=== PATIENT | female | born 1970 | race Caucasian/White ===

== ENCOUNTER 2022-08-28 10:27 | Outpatient (OUT) | payer OTHER, SELFPAY ==
[2022-08-28 13:28] LABS: Thyroid Stimulating Hormone 3.401 uIU/mL (0.358-3.740)
== END 2022-08-28 10:28 | disposition home or self-care (01) ==
LOC: LAB 10:28
PROVIDERS: Visit Provider Physician Assistant
DX: R79.89 Other specified abnormal findings of blood chemistry (principal)
CPT/HCPCS: 36415; 84443

== ENCOUNTER 2023-07-20 | Outpatient (REF) | payer OTHER, SELFPAY | END 2023-07-20 00:01 | disposition home or self-care (01) | LOC: LAB | PROVIDERS: Visit Provider Physician Assistant | DX: Z01.419 Encounter for gynecological examination (general) (routine) without abnormal findings (principal) | CPT/HCPCS: 87624; G0145 ==

== ENCOUNTER 2023-09-07 08:24 | Outpatient (OUT) | payer OTHER, SELFPAY ==
--- NOTE | 2023-09-07 08:40 | XR_ITS ---
The [address] [address] Patient Name: JB POWELL MRN: [id number] date: 1970 Sex: F Assigned Patient Location: [facility] Current Patient Location: [facility] Accession/Order Number: [id number] Exam Date: 09/07/2023 08:30 Report Date: 09/07/2023 09:14 At the request of: DEQUAN MORALES Procedure: XR DEXA axial skeleton EXAMINATION: XR DEXA axial skeleton, 09/07/2023 8:30 AM EDT HISTORY: Postmenopausal State Z78.0 COMPARISON: 2019. TECHNIQUE: Dual-energy X-ray absorptiometry (DEXA) bone density study performed for the axial skeleton. FINDINGS: Bone mineral density AP spine L1-L4 measures 1.067 g/sq cm. T score -0.9. Normal. Lowest bone mineral density of the left femoral neck measuring 0.794 g/sq cm. T score -1.8. Osteopenia XR/XR DEXA axial skeleton IMPRESSION: Osteopenia. Moderate fracture risk Pharmacologic treatment recommendations * No uniform recommendation applies to all patients. Management plans must be individualized. * Consider initiating pharmacologic treatment in postmenopausal women and men >= 50 years of age who have the following: Primary fracture prevention: * T-score <= - 2.5 at the femoral neck, total hip, lumbar spine, 33% radius (some uncertainty with existing data) by DXA. * Low bone mass (osteopenia: T-score between - 1.0 and - 2.5) at the femoral neck or total hip by DXA with a 10-year hip fracture risk >= 3% or a 10-year major osteoporosis-related fracture risk >= 20% (i.e., clinical vertebral, hip, forearm, or proximal humerus) based on the [place]-adapted FRAXregistered model. Secondary fracture prevention: * Fracture of the hip or vertebra regardless of BMD [4, 5]. * Fracture of proximal humerus, pelvis, or distal forearm in persons with low bone mass (osteopenia: T-score between - 1.0 and - 2.5). The decision to treat should be individualized in persons with a fracture of the proximal humerus, pelvis, or distal forearm who do not have osteopenia or low BMD [12, 13]. Liza Badillo MSan SL, Briseyda KL, Ulysses EM, Daiana KG, Tejada AJ, Ranjeet ES. The clinician's guide to prevention and treatment of osteoporosis. Osteoporos Int. 2021;33(10):0783-8218. doi: 10.1007/s97193-071-39808-y. Epub 2021Jun 26. Erratum in: Osteoporos Int. 2021Sep 25;: PMID: [id number]; PMCID: [id number]. Electronically authenticated by: SERA MARKS Date: 09/07/2023 09:14
[2023-09-07 08:49] LABS: Basophils Percent Auto 0.9 % (0.2-2.0); Eosinophils Absolute Auto 0.1 10^3/uL (0.0-0.7); Eosinophils Percent Auto 2.6 % (0.9-7.0); Hematocrit 41.9 % (36.0-48.0); Hemoglobin 14.3 g/dL (12.0-16.0); Immature Granulocytes Abs Auto 0.01 10^3/uL (0.00-0.03); Immature Granulocytes Pct Auto 0.2 % (0.0-0.5); Lymphocytes Absolute Auto 1.7 10^3/uL (1.2-3.8); Lymphocytes Percent Auto 37.8 % (20.5-60.0); Mean Corpuscular HGB Conc 34.1 g/dL (29.9-35.2); Mean Corpuscular Hemoglobin 31.6 pg (26.7-34.0); Mean Corpuscular Volume 92.7 fL (81.0-99.0); Mean Platelet Volume 8.7 fL (9.5-13.5); Monocytes Absolute Auto 0.5 10^3/uL (0.3-0.8); Monocytes Percent Auto 9.9 % (1.7-12.0); Neutrophils Absolute Auto 2.2 10^3/uL (1.4-6.5); Neutrophils Percent Auto 48.6 % (43.0-75.0); Platelet Count 209 10^3/uL (150-450); Red Blood Count 4.52 10^6/uL (4.20-5.40); Red Cell Distribution Width 12.6 % (11.0-15.0); White Blood Count 4.6 10^3/uL (4.0-11.0)
[2023-09-07 09:11] LABS: Alanine Aminotransferase 37 U/L (14-59); Albumin Globulin Ratio 1.1; Albumin Level 3.8 g/dL (3.4-5.0); Alkaline Phosphatase 55 U/L (46-116); Aspartate Amino Transferase 26 U/L (15-37); BUN Creatinine Ratio 17.5; Bilirubin Total 0.7 mg/dL (0.2-1.0); Calcium 9.8 mg/dL (8.5-10.1); Carbon Dioxide 29.5 mmol/L (21.0-32.0); Chloride 105 mmol/L (98-107); Cholesterol 196 mg/dL (<=200); Estimated GFR (African America >60 (>=60); Estimated GFR (Non-African Ame 56 (>=60); Globulin 3.4 g/dL; Glucose 87 mg/dL (74-106); HDL Cholesterol 65 mg/dL (40-60); Potassium 4.5 mmol/L (3.5-5.1); Sodium 141 mmol/L (136-145); Thyroid Stimulating Hormone 5.201 uIU/mL (0.358-3.740); Total Protein 7.2 g/dL (6.4-8.2); Triglycerides 80 mg/dL (<=150)
[2023-09-07 10:02] LABS: Estimated Average Glucose 97 mg/dL
== END 2023-09-07 08:25 | disposition home or self-care (01) ==
LOC: RAD 08:25
PROVIDERS: Visit Provider Obstetrics & Gynecology
DX: Z00.00 Encounter for general adult medical examination without abnormal findings (principal); Z78.0 Asymptomatic menopausal state; M85.80 Other specified disorders of bone density and structure, unspecified site
CPT/HCPCS: 36415; 77080; 80053; 80061; 83036; 84443; 85025

== ENCOUNTER 2024-12-26 19:26 | Outpatient (REF) | payer OTHER, SELFPAY ==
--- OUTSIDE RECORDS SUMMARY | 2024-12-26 11:00 | XMS_ITS | Encounter Summary ---
Author Organization [facility] Address [address] [facility] [place] [address] Care Team Providers Care Finishing Department Supervisor Name Role Phone Lala Brown Unavailable Reason for Visit * ReasonCommentsWell Women Visit Encounter Details DateTypeDepartmentCare Team (Latest Contact Info)Himpqbloqaz68/28/2025 11:00 AM EDTProcedure Visit [facility] [address] [place] [address] Lala Brown PA [address] [facility] [place] [address] Hormone disorder (Primary Dx); Well woman exam with routine gynecological exam; Breast cancer screening by mammogram; Abnormal thyroid stimulating hormone (TSH) level; Wellness examination Social History Tobacco UseTypesPacks/DayYears UsedDateSmoking Tobacco: NeverSmokeless Tobacco: NeverCommentsUnknownSex and Gender InformationValueDate RecordedSex Assigned at BirthNot on fileLegal ZavQadzhg54/15/2023 10:08 PM EDTGender IdentityNot on fileSexual OrientationNot on filedocumented as of this encounter Last Filed Vital Signs Vital SignReadingTime TakenCommentsBlood Qgcbbzbj389/7012/26/2024 11:34 AM EDT Pulse--Temperature--Respiratory Rate--Oxygen Saturation--Inhaled Oxygen Concentration--Eoyupz97.4 kg (150 lb 12.8 oz)12/26/2024 11:34 AM [...] nursing note reviewed. Exam conducted with a bistro server present. Vitals: Estimated body mass index is [...] them. Patient can also view results via [employer]. I reinforced importance of condom use for [...] Plan of Treatment DateTypeDepartmentCare Team (Latest Contact Info)Oqsgaarcczz38/12/2025 8:30 AM ESTOffice Visit [facility] [address] [facility] [place] [phone] Lala Brown PA [address] [facility] [place] [address] 08/28/2025 9:30 AM EDTOffice Visit [facility] [address] [place] [address] Pearl Little MD [address] [place] [address] NameTypePriorityAssociated DiagnosesOrder ScheduleBilateral screening mammogram ImagingRoutine Breast cancer screening by mammogram Expected: 12/26/2024, Expires: 02/25/2026THIN PREP TIS PAP AND HR HPV DNA Pathology and CytologyRoutine Well woman exam with routine gynecological exam Ordered: 12/26/2024TSHLabRoutine Abnormal thyroid stimulating hormone (TSH) level Ordered: 12/26/2024Hemoglobin G5lCeyFtyfiqg Abnormal thyroid stimulating hormone (TSH) level Wellness [...] Expires: 12/26/2025Thyroid peroxidase antibodyLabRoutine Hormone disorder Ordered: 12/26/20241570Q5BzvSxpzumj Hormone disorder Expected: 12/26/2024 (Approximate), Expires: 12/26/2025TESTOSTERONE, [...] Team MemberRelationshipSpecialtyStart DateEnd Date Lala Brown PA [address] [place] [address] [place] [address] PCP - Medical [place] [employer]/documented as of this encounter
--- OUTSIDE RECORDS SUMMARY | 2024-12-26 19:29 | XMS_ITS | CCD ---
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 Name Role Phone Dequan Myers Attending Unavailable ANDREW ., DR BAIRES Admitting Unavailable ANDREW ., DR BAIRES Attending Unavailable MISC, DR VALERA Primary Care Unavailable ANDREW ., DR BAIRES Consulting Unavailable ANDREW ., DR BAIRES Admitting Unavailable ANDREW ., DR BAIRES Attending Unavailable MISC, DR VALERA Primary Care Unavailable ANDREW ., DR BAIRES Consulting Unavailable Dequan Myers DO Primary Care Provider [phone]( [phone] LALA ELAM Referring Unavailable DEQUAN MYERS Primary Care Unavailable Lala Stinson Unavailable PEARL GR Attending Unavailable PEARL GR Attending Unavailable Lala Stinson Unavailable Allergies Allergy ClassificationReported Allergen(s)Allergy TypeDate of OnsetReaction(s) Facility (1 source)ALLERGIES NOT ON FILE; Translations: [ALLERGIES NOT ON FILE]Propensity to adverse reactions (disorder)[facility] Medications Current Medications MedicationDrug Class(es)DatesSig (Normalized)Sig (Original)dimethicone 20 mg/ml topical spray (5 sources)Dimethicone (Restore Cleanser & Moisturizer) 2 % liquid Administer 1 Application into affected eye(s) Daily Jliwfp37 hr metFORMIN hydrochloride 500 mg extended release oral tablet (5 sources)BiguanideStart: 87-03-9537kadz 1 tablet by mouth every twenty-four hours at mealtimemetFORMIN XR (Glucophage-XR) 500 MG 24 hr tablet Indications: Insulin resistance Take 1 tablet (500mg) by mouth in the evening. Take with meals Do not crush, chew, or split. 30 tablet 11 07/20/2023 Active Problems Problem ClassificationProblemDateDocumented DateEpisodic/ChronicImmunizations and screening for infectious disease (1 source)Encounter for screening for human papillomavirus (HPV); Translations: [ENC SCREENING HUMAN PAPILLOMAVIRUS]Onset: 84-77-7836VqnekewsGkxvg and unspecified benign neoplasm (2 sources)Melanocytic nevus of trunk; Translations: [Melanocytic nevi of trunk] 05-27-5695XwxrgbmyYqmaf circulatory disease (2 sources)Spider nevus; Translations: [Nevus, non-neoplastic]11-79-4700Yulxdhhh Other congenital anomalies (2 sources)Birthmark; Translations: [Congenital non-neoplastic nevus]08-28-2024 ChronicOther endocrine disorders (1 source)Disorder of endocrine system; Translations: [Endocrine disorder, unspecified]87-58-3875RjhoiuibAhlfa screening for suspected conditions (not mental disorders or infectious disease) (13 sources)Encounter for screening mammogram for malignant neoplasm of breast; Translations: [Encounter for screening for malignant neoplasm of cervix]Onset: 36-36-7338BauvkmgaCaifn skin disorders (2 sources)Seborrheic keratosis; Translations: [Other seborrheic keratosis] 12-48-5702DsrrqsctPdxvk skin disorders (2 sources)Lentiginosis; Translations: [Other melanin hyperpigmentation] 89-81-9799JyppurkdZpwjd infection (2 sources)Verruca vulgaris; Translations: [Other viral warts]48-96-0147Anzjtsql Results Test NameValueInterpretationReference RangeFacilityBI MAMMO BILATERAL SCREENING TOMOSYNTHESISon 57-61-3061JI MAMMO BILATERAL SCREENING TOMOSYNTHESISInterpreted By: Megan Lynch, STUDY: BI MAMMO BILATERAL SCREENING TOMOSYNTHESIS; 2023 10:24 am ACCESSION NUMBER(S): [id number] ORDERING CLINICIAN: INTERFACE UNSPECIFIELDPROVIDER INDICATION: Screening. Family history of breast cancer. COMPARISON: 08/06/2021, 05/20/2018. FINDINGS: 2D and tomosynthesis images were reviewed at 1 mm slice thickness. Density: There are areas of scattered fibroglandular tissue. No suspicious masses or calcifications are identified. IMPRESSION: No mammographic evidence of malignancy. BI-RADS CATEGORY: BI-RADS Category: 1 Negative. Recommendation: Annual Screening. Recommended Date: 1 Year. Laterality: Bilateral. For any future breast imaging appointments, please call [phone] ([phone]). MACRO: None Signed by: Megan Lynch 08/16/2023 1:25 PM Dictation workstation: [id number] Main Campus Medical CenterCBC AUTO DIFFon 40-28-1613BHPV #0.0 103/ulNormal0.0-0.1The [facility] CenterComment on above:Performed By: #### CBC #### [facility] [address] [address] [address] Kirill MatosBasophils/100 WBC (Bld)0.8 %Normal0.2-2.0[facility] Comment on above:Performed By: #### CBC #### [facility] [address] [address] [address] Kirill Daniel #0.1 103/ulNormal0.0-0.7The [facility] CenterComment on above: Performed By: #### CBC #### [facility] [address] [address] [address] Kirill Waldroposinophils/100 WBC (Bld)2.3 %Normal0.9-7.0[facility] Comment on above:Performed By: #### CBC #### [facility] [address] [address] [address] Kirill Waldroprythrocyte distribution width (RBC) [Ratio]12.3 %Qhlriv47.0-15.0 [facility] HospitalComment on above:Performed By: #### CBC #### [facility] [address] [address] [address] Kirill MatosHematocrit (Bld) [Volume fraction]40.3 %Beebux96.0-48.0[facility] HospitalComment on above:Performed By: #### CBC #### [facility] [address] [address] [address] Kirill MatosHemoglobin (Bld) [Mass/Vol]13.6 g/eZMtsqbb86.0-16.0The [facility] CenterComment on above:Performed By: #### CBC #### [facility] [address] [place] [address] Dr. Kirill Villanueva #0.01 10e3/ulNormal0.00-0.03The [facility] CenterComment on above:Performed By: #### CBC #### [facility] [address] [place] [address] Dr. Kirill Villanueva %0.2 %Normal0.0-0.5The [facility] CenterComment on above: Performed By: #### CBC #### [facility] [address] [place] [address] Dr. Kirill Clarke #1.5 103/ulNormal1.2-3.8The [facility] CenterComment on above:Performed By: #### CBC #### [facility] [address] [place] [address] Dr. Kirill Cannonhocytes/100 WBC (Bld)28.8 %Duvtxe45.5-60.0The [facility] CenterComment on above:Performed By: #### CBC #### [facility] [address] [place] [address] Dr. Kirill Greenfield DIFF REQNONormalThe [facility] CenterComment on above: Performed By: #### CBC #### [facility] [address] [place] [address] Dr. Kirill Sanchez (RBC) [Entitic mass]31.1 wzEfcqvc22.7-34.0The [facility] CenterComment on above:Performed By: #### CBC #### [facility] [address] [place] [address] Dr. Kirill Sanchez (RBC) [Mass/Vol]33.7 g/dBGdiowc06.9-35.2The [facility] CenterComment on above:Performed By: #### CBC #### [facility] [address] [place] [address] Dr. Kirill Sanchez (RBC) [Entitic vol]92.2 fEBzwdes27.0-99.0The [facility] CenterComment on above:Performed By: #### CBC #### [facility] [address] [place] [address] Dr. Kirill Cruz #0.4 103/ulNormal0.3-0.8The [facility] CenterComment on above:Performed By: #### CBC #### [facility] [address] [place] [address] Dr. Kirill Verasocytes/100 WBC (Bld)6.8 %Normal1.7-12.0The [facility] Comment on above:Performed By: #### CBC #### [facility] [address] [place] [address] Dr. Kirill Russo #3.2 103/ulNormal1.4-6.5The [facility] CenterComment on above:Performed By: #### CBC #### [facility] [address] [place] [address] Dr. Kirill Alvaradoutrophils/100 WBC (Bld)61.1 %Zjvthp86.0-75.0The [facility] CenterComment on above:Performed By: #### CBC #### [facility] [address] [place] [address] Dr. Kirill Hough mean volume (Bld) [Entitic vol]8.7 fLCritically low 9.5-13.5The [facility] CenterComment on above:Performed By: #### CBC #### [facility] [address] [place] [address] Dr. Kirill HeinT225 103/uqKcejdb367-107Ijr [facility] CenterComment on above: Performed By: #### CBC #### [facility] [address] [place] [address] Dr. Kirill FreitasC4.37 106/ulNormal4.20-5.40The [facility] CenterComment on above:Performed By: #### CBC #### [facility] [address] [place] [address] Dr. Kirill ZacariasBC5.2 103/ulNormal4.0-11.0The [facility] CenterComment on above: Performed By: #### CBC #### [facility] [address] [place] [address] Dr. Kirill MatosGLYCOHEMOGLOBIN A1Con 86-08-7792PPP RECOMMENDATIONSEE BELOWNoKettering Health TroyComment on above:Result Comment: ADA RECOMMENDED LIMIT 4.0 - 6.0 ADA THERAPEUTIC TARGET < 7.0 ACTION SUGGESTED > 7.0Performed By: #### A1C #### [facility] [address] [place] [address] Dr. Kirill MatosGlucose [Mass/Vol]82 mg/dLNoHarrison Community HospitalComment on above:Performed By: #### A1C #### [facility] [address] [place] [address] Dr. Kirill MatosHbA1c (Bld) [Mass fraction]4.5 %Normal4.5-6.2The [facility] CenterComment on above:Performed By: #### A1C #### [facility] [address] [place] [address] Dr. Kirill MatosLIPID PROFILEon 51-98-5678MFWA-HDL RATIO NORMSEE [facility] HospitalComment on above:Result Comment: 3.3 - 4.4 LOW RISK 4.4 - 7.1 AVERAGE RISK 7.1 - 11.0 MODERATE RISK >11.0 HIGH RISKPerformed By: #### BMP, TSH, LIPID #### [facility] [address] [place] [address] Dr. Kirill MatosCholesterol [Mass/Vol]183 mg/dLNormal<=200The [facility] Comment on above:Performed By: #### BMP, TSH, LIPID #### [facility] [address] [place] [address] Dr. Kirill Pageesterol in HDL [Mass/Vol]54 mg/eIIanksw94-50Ctm [facility] CenterComment on above:Performed By: #### BMP, TSH, LIPID #### [facility] [address] [place] [address] Dr. Kirill Pageesterol in LDL [Mass/Vol]111.2 mg/dLDayton Children's HospitalComment on above:Performed By: #### BMP, TSH, LIPID #### [facility] [address] [address] [address] Kirill Walton.total/Cholesterol in HDL [Mass ratio]3.4 {ratio} NormalThe [facility] Medical CenterComment on above:Performed By: #### BMP, TSH, LIPID #### [facility] [address] [address] [address] Kirill Adan NORMAL> or = 60 mg/dl - LOW CARDIOVASCULAR RISK <40 mg/dl - HIGH CARDIOVASCULAR RISKDayton Children's HospitalComment on above:Performed By: #### BMP, TSH, LIPID #### [facility] [address] [address] [address] Kirill Espinoza CALC NORMALSEE BELOWDayton Children's HospitalComment on above:Result Comment: <100 mg/dl OPTIMAL 100 - 129 mg/dl NEAR OR ABOVE OPTIMAL 130 - 159 mg/dl BORDERLINE HIGH 160 - 189 mg/dl HIGH >190 mg/dl VERY HIGH Performed By: #### BMP, TSH, LIPID #### [facility] [address] [address] [address] Kirill MatosTriglyceride [Mass/Vol]89 mg/dLNormal<=150[facility] Comment on above:Performed By: #### BMP, TSH, LIPID #### [facility] [address] [place] [address] Dr. Kirill SanchezLDL CALC17.8 mg/dLNoHarrison Community HospitalComment on above: Performed By: #### BMP, TSH, LIPID #### [facility] [address] [address] [address] Kirill MatosPROF CHEM 8 (BAS METB)on 05-23-3726Webii gap [Moles/Vol]9.3 mmol/LNormalFayette County Memorial HospitalComment on above:Performed By: #### BMP, TSH, LIPID #### [facility] [address] [place] [address] Dr. Kirill MatosCalcium [Mass/Vol]10.1 mg/dLNormal8.5-10.1The [facility] Comment on above:Performed By: #### BMP, TSH, LIPID #### [facility] [address] [address] [address] Kirill MatosChloride [Moles/Vol]104 mmol/BRmbbpm60-468Thz [facility] Comment on above:Performed By: #### BMP, TSH, LIPID #### [facility] [address] [address] [address] Kirill MatosCO2 [Moles/Vol]29.0 mmol/MVtxrts15.0-32.0The [facility] Comment on above:Performed By: #### BMP, TSH, LIPID #### [facility] [address] [place] [address] Dr. Kirill MatosCreatinine [Mass/Vol]0.89 mg/dLNormal0.55-1.02The [facility] CenterComment on above:Performed By: #### BMP, TSH, LIPID #### [facility] [address] [place] [address] Dr. Roy ChangEGFR-AF GHANAIAN>60Normal>=60The [facility] CenterComment on above:Performed By: #### BMP, TSH, LIPID #### [facility] [address] [place] [address] Dr. Kirill WaldropGFR-NON AF GHANAIAN>60Normal>=60The [facility] CenterComment on above:Performed By: #### BMP, TSH, LIPID #### [facility] [address] [address] [address] Kirill MatosGlucose [Mass/Vol]83 mg/kLUdyapa54-144EhnFayette County Memorial Hospital Comment on above:Performed By: #### BMP, TSH, LIPID #### [facility] [address] [address] [address] Kirill MatosPotassium [Moles/Vol]4.3 mmol/LNormal3.5-5.1The [facility] Comment on above:Performed By: #### BMP, TSH, LIPID #### [facility] [address] [address] [address] Kirill Harkinsdium [Moles/Vol]138 mmol/MGhztdr930-036Azy [facility] Comment on above:Performed By: #### BMP, TSH, LIPID #### [facility] [address] [place] [address] Dr. Kirill Goetz nitrogen [Mass/Vol]17.0 mg/dLNormal7.0-18.0The [facility] CenterComment on above:Performed By: #### BMP, TSH, LIPID #### [facility] [address] [place] [address] Dr. Kirill Goetz nitrogen/Creatinine [Mass ratio]19.1 mg/mgNoHarrison Community HospitalComment on above:Performed By: #### BMP, TSH, LIPID #### [facility] [address] [place] [address] Dr. Kirill Dumont 78-14-2782VFN9.094 uIU/mLCritically high0.358-3.740The [facility] CenterComment on above:Performed By: #### BMP, TSH, LIPID #### [facility] [address] [place] [address] Dr. Kirill Hester ACOG PANEL 2: 30 to 65on 05-08-2022..NormalThe [facility] Medical CenterComment on above:Result Comment: Performed at: WBPerformed By: #### [id number] #### [facility] [address] [place] [address] Dr. Kirill Carver Gdln ACOG Gawnrln90-89ZolttbYuoHarrison Community HospitalComment on above:Performed By: #### [id number] #### [facility] [address] [place] [address] Dr. Kirill MatosDIAGNOSIS:CommentDayton Children's HospitalComment on above: Result Comment: NEGATIVE FOR INTRAEPITHELIAL LESION OR MALIGNANCY. CELLULAR CHANGES ASSOCIATED WITH ATROPHY ARE PRESENT. THIS SPECIMEN WAS RESCREENED PART OF OUR INTAKE RN PROGRAM. Performed at: WBPerformed By: #### [id number] #### [facility] [address] [place] [address] Dr. Kirill Rodriguez AptimaNegativeNormalNegativeOhioHealth Arthur G.[facility], Cancer [facility] on above:Result Comment: This nucleic acid amplification test detects fourteen high-risk HPV types (16,18,31,33,35,39,45,51,52,56,58,59,66,68) without differentiation. Performed at: =GPerformed By: #### [id number] #### [facility] [address] [place] [address] Dr. Kirill MatosHPMoises Genotype ReflexCommentRegency Hospital Toledo on above:Result Comment: Criteria not met, HPV Genotype not performed. Performed at: WBPerformed By: #### [id number] [address] [address] [address] Kirill MatosMethodology:CommentRegency Hospital Toledo on above: Result Comment: This liquid based ThinPrep(R) pap test was screened with the use of an image guided system. Performed at: WBPerformed By: #### [id number] #### [address] [address] Dr[address] Kirill MatosNote:CommentRegency Hospital Toledo on above:Result Comment: The Pap smear is a screening test designed to aid in the detection of premalignant and malignant conditions of the uterine cervix. It is not a diagnostic procedure and should not be used as the sole means of detecting cervical cancer. Both false-positive and false-negative reports do occur. . Performed at: WBPerformed By: #### [id number] #### [facility] [address] [place] [address] Dr. Kirill MatosPerformed by:CommentRegency Hospital Toledo on above: Result Comment: Carlos Irizarry, Fuel Operator (ASCP) Performed at: WBPerformed By: #### [id number] #### [facility] [address] [place] [address] Dr. Kirill MatosQC reviewed by:[facility] on above:Result Comment: Beatrice Cummings, Fuel Operator (ASCP) Performed at: WBPerformed By: #### [id number] #### [facility] [address] [address] [address] Kirill Esqueda adequacy:CommentDayton Children's HospitalComment on above:Result Comment: Satisfactory for evaluation. Endocervical and/or squamous metaplastic cells (endocervical component) are present. Performed at: WBPerformed By: #### [id number] #### [facility] [address] [address] [address] Kirill MatosDIGITAL MAMM SCREENING W/ TOMOon 89-54-3969ARWNIQI MAMM SCREENING W/ TOMOMRN: [id number] Patient Name: KRYSTAL POWELL STUDY: DIGITAL MAMM SCREENING W/ ROSELYN; 08/06/2021 2:17 pm ACCESSION NUMBER(S): [id number] ORDERING CLINICIAN: DEQUAN MYERS INDICATION: Screening. Remote benign left breast biopsy. COMPARISON: 05/20/2018 and 01/26/2017. FINDINGS: 2D and tomosynthesis images were reviewed at 1 mm slice thickness. There are areas of scattered fibroglandular tissue. No suspicious masses or calcifications are identified. IMPRESSION: No mammographic evidence of malignancy. BI-RADS CATEGORY: Category: 1 - Negative. Recommendation: 1 Year Screening. For any future breast imaging appointments, please call [phone]). Patient letter sent SNORM Electronically signed by: YUDELKA GIPSON MDNorth Shore Health Vital Signs Date TimeVital SignValuePerforming YrlizhkekKkmxiydm21-44-3050 11:34-0400Body mass index (BMI) [Ratio]26.71 kg/m2Lala MOREL Work Phone: [facility] WestBwgrijwjmt64-60-1350 11:34-0400Body fbhoeu26.4 kg Lala MOREL Work Phone: [facility] BeyondSaint Mary's Health CenterNpncxkxcbg95-46-0487 11:34-0400Diastolic blood nfoziluq73 mm[Hg]Lala MOREL Work Phone: noSaint Mary's Health CenterQudaavdzke66-73-0066 11:34-0400Systolic blood tgzoqujm600 mm[Hg]Lala MOREL Work Phone: NOSaint Mary's Health CenterCvrtraellb21-42-1071 10:10040Body cm [facility]06-13-2024 10:040Body mass index (BMI) [Ratio]25.33 kg/m2CmMercy Health St[facility]06-13-2024 10:040Body [address]iknwa29.[address] [facility] Encounters Encounter DateEncounter TypeCare ProviderFacilityStart: 12-26-2024 End: 26-19-3360Jkozxy flowsheetLala MOREL Work Phone: no [facility] OBGYNStart: 12-26-2024 End: 54-93-6782Hcfpdy flowsCollin MOREL Work Phone: noms Blake OBGYNStart: 12-26-2024 End: 22-37-5078Ddwsxrq encounter procedureLala MOREL Work Phone: [facility] Work Phone: Start: 12-26-2024 End: 51-75-6742Tdxemmc encounter statusLala MOREL Work Phone: noms HealthcareStart: 12-26-2024 End: 10-81-2920Kygikadj preventive med est patient 40-64yrsAmy Stephanie MOREL Work Phone: noms Blake OBGYNComment on above:Hormone disorder (Primary Dx); Well woman exam with routine gynecological exam; Breast cancer screening by mammogram; Abnormal thyroid stimulating hormone (TSH) level; Wellness examinationStart: 08-28-2024 End: 28-09-4162Hhgvbz flowsheetEmyelitza Gr MD Work Phone: noms SWS DERMStart: 08-28-2024 End: 82-06-9105Koicho flowsheetPearl Gr MD Work Phone: noms SWS DERMStart: 08-28-2024 End: 86-47-7468sivonencyhDTULA A PETITTINot AvailableStart: 08-28-2024 End: 68-52-3463Tqqvvm outpatient visit 15 minutesEmyelitza Gr MD Work Phone: NO[facility] DERMComment on above:Seborrheic keratosis (Primary Dx); Melanocytic nevus of trunk; Lentigines; Capillary angioma; Birthmark of skin; Common wartStart: 09-27-2023 End: 45-64-5741iuqbcobrcbNERPC A PETITTINot AvailableStart: 2023 End: 59-05-0962Ftjhnujrir hospital visit by physicianChickasaw [facility] Cnrk1008d [facility]– MilwaukeeComment on above:Encounter for screening mammogram for malignant neoplasm of breastStart: 2023 End: 15-40-2727nzaquwizefGWQMercy Health Urbana Hospitaltart: 56-05-0205Nnufddxju for general adult medical examination without abnormal findingsDR DEQUAN ANDREW .[facility] Hospitaltart: 05-21-2022 End: 36-92-4480javvbijtupRW DEQUAN ANDREW .Facility:X2Tixgw: 05-21-2022 End: 94-52-1091Gdfspibht for general adult medical examination without abnormal findingsDR DEQUAN ANDREW .Facility:X3Zpajq: 04-30-2022 End: 88-09-9774yatwyqwprkSA DEQUAN ANDREW .Facility:I7Lxgqu: 32-23-9282ylyyllmzef Dequan Jose FazioFacility:[id number] Procedures DateProcedureProcedure DetailPerforming ClinicianStart: 30-17-0934Oajptrmeehl Pearl Gr MD Work Phone: Start: 21-49-2531Frmwoxwriip observation [Identifier] in Cervix by Cyto stainPearl Gr MD Work Phone: Start: 53-40-3385IbxneuskrpvSdxal Petitti MD Work Phone: Start: 77-18-2050JkgffnayfwyNbx MammoStart: 04-30-2022 Microscopic observation [Identifier] in Cervix by Cyto stainChickasaw Nation Medical Center – [facility] MammoStart: 69-97-7197RnjankfsxpqRyb Mammo Plan of Treatment DateCare ActivityDetailAuthorStart: 49-56-2200Rboaepfxg for malignant neoplasm of colonNOMS HealthcareStart: 00-89-7455Aemqfdyed for malignant neoplasm of colonSumma Health Akron CampusStart: 47-71-8013Olbjtdxgs for malignant neoplasm of cervixNOMS HealthcareStart: 89-57-5605Mgtnilcva for malignant neoplasm of cervixPap SmearNOMS HealthcareStart: 08-28-2025 End: 90-37-0261Cgkyeqi encounter procedureNOMS SWS DERMStart: 04-30-2025 Screening for malignant neoplasm of cervixSumma Health [facility] Start: 01-10-2025 End: 19-31-6230Dgojdop encounter ubkwhmzbm39/12/2025 8:30 AM EST Office Visit KARMEN THOMPSON [address] [place] [id number] Lala Elam PA [address] [place] [address] KARMEN SOLORZANONStart: 12-26-2024 End: 24-90-4118S-peptideC-peptide Lab Routine Hormone disorder Expected: 12/26/2024 (Approximate), Expires: 12/26/2025[facility] HealthcareComment on above: Expected: 12/26/2024 (Approximate), Expires: 12/26/2025Start: 12-26-2024 End: 49-41-7194TLA W Auto Differential panel - BloodCBC auto differential Lab Routine Wellness examination Expected: 12/26/2024 (Approximate), Expires: 12/26/2025[facility] HealthcareComment on above:Expected: 12/26/2024 (Approximate), Expires: 12/26/2025Start: 12-26-2024 End: 10-29-7273Macfuazf freeCortisol, free Lab Routine Hormone disorder Expected: 12/26/2024 (Approximate), Expires: 12/26/2025[facility] HealthcareComment on above:Expected: 12/26/2024 (Approximate), Expires: 12/26/2025Start: 12-26-2024 End: 82-40-2619Goojdul [Mass/volume] in Serum or PlasmaGlucose, random Lab Routine Hormone disorder Expected: 12/26/2024 (Approximate), Expires: 12/26/2025 N[facility] HealthcareComment on above:Expected: 12/26/2024 (Approximate), Expires: 12/26/2025Start: 12-26-2024 End: 35-24-4279Nmlmcot, totalInsulin, total Lab Routine Hormone disorder Expected: 12/26/2024 (Approximate), Expires: 12/26/2025[facility] HealthcareComment on above:Expected: 12/26/2024 (Approximate), Expires: 12/26/2025Start: 12-26-2024 End: 59-54-2492AE Breast - bilateral ScreeningBilateral screening mammogram Imaging Routine Breast cancer screening by mammogram Expected: 12/26/2024, Expires: 02/25/2026[facility] Work Phone: comment on above:Expected: 12/26/2024, Expires: 02/25/2026Start: 12-26-2024 End: 31-20-7186Lhhirkpdi serumSerotonin serum Lab Routine Hormone disorder Expected: 12/26/2024 (Approximate), Expires: 12/26/2025[facility] HealthcareComment on above:Expected: 12/26/2024 (Approximate), Expires: 12/26/2025Start: 12-26-2024 End: 16-57-2684RehbondyzcwpsHulcfuortrtcn Lab Routine Hormone disorder Expected: 12/26/2024 (Approximate), Expires: 12/26/2025[facility] HealthcareComment on above: Expected: 12/26/2024 (Approximate), Expires: 12/26/2025Start: 12-26-2024 End: 90-20-1885Rnydtjzdqphnv AntibodyThyroglobulin Antibody Lab Routine Hormone disorder Expected: 12/26/2024 (Approximate), Expires: 12/26/2025[facility] Comment on above:Expected: 12/26/2024 (Approximate), Expires: 12/26/2025Start: 12-26-2024 End: 69-06-5642Xjmdlxzbsts [Units/volume] in Serum or PlasmaNOSaint Mary's Health Center Comment on above:Ordered: 12/26/2024Expected: 12/26/2024 (Approximate), Expires: 12/26/2025Start: 87-61-9605QVPWM-19 Vaccine ( season)COVID-19 Vaccine ( season)[facility] HealthcareStart: 09-07-3346Relbwovas vaccinationNOVA HealthcareStart: 87-93-5931Snphahbkb for malignant neoplasm of breastMammogramUNIVERSITY OF UTAH [facility] HealthcareStart: 57-26-0328TYCED-19 Vaccine ( season)COVID-19 Vaccine ()[facility] Start: 74-44-6440Kduslqtzw for malignant neoplasm of breastMammogramUniversity Hospitals [facility]: 24-65-4845Msmlbl Vaccines (1 of 2)Zoster Vaccines (1 of 2)[facility]: 71-32-5801RSY Vaccines (1 of 1 - Standard series)MMR Vaccines (1 of 1 - Standard series)[facility]: 62-24-6306YLmX/Tdap/Td Vaccines (1 - Tdap)DTaP/Tdap/Td Vaccines (1 - Tdap)[facility]: 38-49-0912Ybjndkukk for malignant neoplasm of cervixHPV/CotestUniversity Hospitals Conneaut Medical Center: 34-33-4159Jilzjcliy B Vaccines (1 of 3 - 19+ 3-dose series)Hepatitis B Vaccines (1 of 3 - 19+ 3-dose series)[facility]: 1988 Diabetes mellitus screeningDiabetes ScreeningSumma Health [facility] Start: 26-33-7301Wyxhtrecj C screeningHepatitis C ScreeningUniversity Hospitals Conneaut [facility]: 86-37-9782XDhM/Tdap/Td Vaccines (1 - Tdap)DTaP/Tdap/Td Vaccines (1 - Tdap)[facility]: 16-55-4816ILR Vaccines (1 of 1 - Standard series)MMR Vaccines (1 of 1 - Standard series)[facility]Start: 94-20-4408YGH screeningHIV ScreeningUniversity Hospitals Conneaut [facility]: 44-51-9139Szgst panelLipid PanelUniversity Hospitals Conneaut Medical Center: 28-83-3758Qyqnulczf for malignant neoplasm of colonUniversity Hospitals Conne[facility]: 23-06-7623Nkqtsv Adult PhysicalYearly Adult PhysicalSumma Health Akron CampusCholesterol [Mass/volume] in Serum or PlasmaCholesterol, total Lab Routine Wellness examination Ordered: 12/26/2024[facility] HealthcareComment on above:Ordered: 12/26/2024omprehensive metabolic 2000 panel - Serum or PlasmaComprehensive metabolic panel Lab Routine Wellness examination Ordered: 12/26/2024[facility] HealthcareComment on above:Ordered: 12/26/2024 End: 67-91-3409CFT Breast [facility] Area Work Phone: Comment on above:Once for 1 Occurrences starting 2023 until 08/12/20236359BUWY-hcrogslOWAD-najqzzh Lab Routine Hormone disorder Ordered: 12/26/2024[facility] HealthcareComment on above:Ordered: 12/26/2024Estradiol Estradiol Lab Routine Hormone disorder Ordered: 12/26/2024[facility] HealthcareComment on above:Ordered: 12/26/2024EstroneEstrone Lab Routine Hormone disorder Ordered: 12/26/2024[facility] HealthcareComment on above:Ordered: 12/26/2024Ferritin [Mass/volume] in Serum or PlasmaFerritin Lab Routine Hormone disorder Ordered: 12/26/2024[facility] HealthcareComment on above:Ordered: 12/26/2024Hemoglobin A1c/Hemoglobin.total in BloodHemoglobin A1c Lab Routine Abnormal thyroid stimulating hormone (TSH) level Wellness examination Ordered: 12/26/2024[facility] HealthcareComment on above:Ordered: 12/26/2024ProgesteroneProgesterone Lab Routine Hormone disorder Ordered: 12/26/2024[facility] HealthcareComment on above: Ordered: 12/26/2024Sex hormone binding globulinSex hormone binding globulin Lab Routine Hormone disorder Ordered: 12/26/2024[facility] HealthcareComment on above: Ordered: 12/26/2024T3, reverseT3, reverse Lab Routine Hormone disorder Ordered: 12/26/2024[facility] HealthcareComment on above:Ordered: 12/26/2024TESTOSTERONE, FREE TESTOSTERONE, FREE Lab Routine Hormone disorder Ordered: 12/26/2024[facility] HealthcareComment on above:Ordered: 12/26/2024Testosterone, free, total Testosterone, free, total Lab Routine Hormone disorder Ordered: 12/26/2024[facility] HealthcareComment on above:Ordered: 12/26/2024THIN PREP TIS PAP AND HR HPV DNA THIN PREP TIS PAP AND HR HPV DNA Pathology and Cytology Routine Well woman exam with routine gynecological exam Ordered: 12/26/2024[facility] HealthcareComment on above:Ordered: 12/26/2024Thyroid peroxidase antibodyThyroid peroxidase antibody Lab Routine Hormone disorder Ordered: 12/26/2024[facility] HealthcareComment on above: Ordered: 12/26/2024Thyroxine (T4) free [Mass/volume] in Serum or PlasmaT4, free Lab Routine Hormone disorder Ordered: 12/26/2024[facility] HealthcareComment on above: Ordered: 12/26/2024Triiodothyronine (T3) Free [Mass/volume] in Serum or Plasma T3, free Lab Routine Hormone disorder Ordered: 12/26/2024[facility] HealthcareComment on above:Ordered: 12/26/2024Vitamin D 1,25 dihydroxyVitamin D 1,25 dihydroxy Lab Routine Hormone disorder Ordered: 12/26/2024[facility] HealthcareComment on above: Ordered: 12/26/2024 Immunizations Immunization DateImmunizationNotesCare LvranheeWqprjnaa59-41-4564vpsbvcfvb virus vaccine, unspecified formulationPearl Gr MD Work Phone: [facility] Payers DatePayer CategoryPayerPolicy [id number] Health InsuranceMEDICAL MUTUAL [id number] MUTUAL OF [facility] [id number] 2023-Present [address] [place] [id number] [id number] [id number] 2..[id number] 2..[id number] 2..840.1.24760[id number] Social History DateTypeDetailFacilityTobacco smoking status NHISTobacco smoking consumption unknownUnPremier Health [facility] Work Phone: Start: 31-48-4217Zer assigned at birthNot on file [facility] Work Phone: Start: 09-27-2023 End: 61-53-3459Nrvvlg identityNot on fileSumma Health [facility] Campus Work Phone: Start: 08-02-2023 End: 35-43-7421Ccwznbfz to SARS-CoV-2 (event)Not sureSumma Health Akron CampusStart: 00-18-4325Dbykpkk smoking status NHISNever smoked tobaccoNOMS HealthcareStart: 58-60-6899Smhqpid use and exposureSmokeless tobacco non-user [facility] HealthcareStart: 09-27-2023 End: 46-31-1805Aixuzzk of Social functionUNIVERSITY OF UTAH HOSPITAL HealthcareStart: 30-77-2627Wco FemaleSaint Joseph Hospital West History of Present illness Narrative 12-26-2024 Note Date & IdysMspoWojngcco53-59-9725 History of Present illness Narrative* MARIA TERESA Mojica - 12/26/2024 11:00 AM EDT Reason for Appointment: Patient ID: Krystal Powell is a 54 y.o. female who presents for [facility] Visit Patient presents today for Annual [...] nursing note reviewed. Exam conducted with a hostler helper present. Vitals: Estimated body mass index is 26.71 kg/m as calculated from the following: Height as [...] them. Patient can also view results via [employer]. I reinforced importance of condom use for [...] of: MARIA TERESA Mojica documented in this encounterNOMS Healthcare History of Present illness Narrative 08-28-2024 Note Date & HwqgGzqrCfjlpyuh24-94-0234 History of Present illness Narrative* Pearl Gr MD - 08/28/2024 10:00 AM EDT Skin Check Location: Patient requests a full body skin examination Dermatologic history: no history of skin cancer, no history of atypical moles, no family history ofmelanoma Last visit: 09/27/2023 Established patient All pertinent medical history, medications, and allergies were reviewed. General Exam: alert , oriented to person, place, and time , normal affect, well appearing Unaccompanied Scalp, Examined , exam limited by hair Right leg Examined Head, Face Examined Left leg Examined Neck Examined Right foot Examined Chest Examined , limited by bra Left foot Examined Back Examined Buttocks Examined , limited by underwear Abdomen Examined Digits,nails: Examined Right arm Examined Patient is wearing toenail kinyarwanda. Denies any dark streaks under kinyarwanda. Left arm Examined Lymphatics: Not examined Hands Examined Skin Exam 1. SEBORRHEIC KERATOSIS Trunk Stuck on verrucous, quick-brown papules and plaques. Patient was counseled regarding these benign growths. Removal is normally not necessary, but they may be removed if they are symptomatic or for cosmetic reasons. 2. MELANOCYTIC NEVUS OF TRUNK Generalized Scattered benign appearing, regular brown to light brown melanocytic papules and macules with similar morphology Counseled regarding these benign growths. Rarely, a nevus can develop into malignant melanoma, so any changing nevi should be promptly re-evaluated. 3. LENTIGINES Generalized Scattered quick macules in sun-exposed areas. The patient was informed that lentigines are benign pigmented lesions that occur on sun-exposed andsun-damaged skin. No treatment is necessary. Recommended regular use of broad spectrum sunscreen SPF 30 or higher 4. CAPILLARY ANGIOMA Trunk Scattered humphreys-red papule(s). The patient was informed that angiomas are benign growths on the the skin. No treatment is necessary. 5. BIRTHMARK OF SKIN Right Lower Back 6. COMMON WART Right Lower Leg - Anterior Erythematous verrucous papule(s). Patient and/or family member was counseled regarding warts. Treatment options were discussed including cryotherapy, antony antigen injections, and topical Cantharidin. It was explained that it typically requires multiple treatments before the wart(s) completely resolve. The importance of followingup every 3-4 weeks was emphasized. Encouraged OTC wart removers in between appointments to hasten resolution. Next Visit: 1 year, skin check documented in this encounterUN[facility]ERS[facility] Evaluation note Note Date & TypeNoteFacilityEvaluation note* Diagnosis Encounter for screening mammogram for malignant neoplasm of breast documented in this encounter [facility] Work Phone: Evaluation note Note Date & TypeNoteFacilityEvaluation note* Diagnosis Seborrheic keratosis- Primary Melanocytic nevus of trunk Benign neoplasm of skin of trunk, except scrotum Lentigines Capillary angioma Nevus, non-neoplastic Birthmark of skin Congenital vascular hamartomas Common wart Other specified viral warts documented in this encounter [facility] Evaluation note Note Date & TypeNoteFacilityEvaluation note* Diagnosis Hormone disorder- Primary Unspecified endocrine disorder Well woman exam with routine gynecological exam Routine gynecological examination Breast cancer screening by mammogram Abnormal thyroid stimulating hormone (TSH) level Wellness examination documented in this encounter [facility] Summary Purpose Family History No Family History Records FoundNo Family History Records FoundNo Family History Records FoundNo Family History Records Found Advance Directives No Advanced Directives Records FoundNo Advanced Directives Records FoundNo Advanced Directives Records FoundNo Advanced Directives Records Found Additional Source Comments INFORMATION SOURCE (unrecogn ized section and content) DATE CREATED AUTHOR 11/30/2021 [facility] DATE CREATED AUTHOR AUTHOR'S ORGANIZ ATION 05/24/2022 [facility] DATE CREATED AUTHOR AUTHOR'S ORGANIZ ATION 09/19/2023 [facility] DATE CREATED AUTHOR AUTHOR'S ORGANIZ ATION 08/28/2024 [facility] EPIC Reason for Visit (unrecogniz ed section and content) SpecialtyDiagnoses / ProceduresReferred By ContactReferred To ContactRadiology Diagnoses Encounter for screening mammogram for malignant neoplasm of breast Procedures BI mammo bilateral screening tomosynthesis BI mammo bilateral screening tomosynthesis BI mammo bilateral screening tomosynthesis Lala Elam PA [address] [place] [address] [facility] [place] [address] Referral IDStatusReasonStart DateExpiration DateVisits RequestedVisits [id number] Review Perform Procedure /[id number] CheckReasonCommentsWell Women Visit Care Teams (unrecognized sec tion and content) Team MemberRelationshipSpecialtyStart DateEnd Date Dequan Myers DO [address] [facility] [address], [place] [address] PCP - General05/20/18Team MemberRelationshipSpecialtyStart DateEnd Date Lala Elam PA [address] [place] [address] [place] [address] PCP - Medical [place] [employer]09/30/1411Te MemberRelationshipSpecialty Start DateEnd Date Lala Elam PA [address] [place] [address] PCP - Medical [place] [employer]09/30/1411Te MemberRelationshipSpecialty Start DateEnd Date Lala Elam PA [address] [place] [address] PCP - Medical [place] [employer]09/30/1411Te MemberRelationshipSpecialty Start DateEnd Date Lala Elam PA [address] [place] [address] PCP - [facility] Commercial09/30/1411 FOR RECORDS PERTAINING TO PATIENTS WHO ARE OR HAVE BEEN ENROLLED IN A CHEMICAL DEPENDENCY/SUBSTANCEABUSE PROGRAM, SOME INFORMATION MAY BE OMITTED. This clinical summary was aggregated from multiple sources. Caution should be exercised in using it in the provision of clinical care. This summary normalizes information from multiple sources, and as a consequence, information in this document may materially change the coding, format and clinical context of patient data. In addition, data may be omitted in some cases. CLINICAL DECISIONS SHOULD BE BASED ON THE PRIMARY CLINICAL RECORDS. [facility] [employer] [facility]. provides no warranty or guarantee of the accuracy or completeness of information in this document.
--- OUTSIDE RECORDS SUMMARY | 2024-12-26 19:29 | XMS_ITS | Clinical Summary ---
Author Organization [employer] [facility] tem Address [id number] [place] [address] Care Team Providers Care Hydraulic Press Operator Name Role Phone LuciaWellington peters Primary Care Provider [phone] Allergies No known active allergies Medications No known medications Active Problems No known active problems Family History Medical HistoryRelationNameCommentsNo Known ProblemsFatherNo Known Problems MotherRelationNameStatusCommentsFatherAliveMotherAlive Social History Tobacco UseTypesPacks/DayYears UsedDateSmoking Tobacco: NeverSmokeless Tobacco: Never Tobacco Cessation:Counseling Given: Not Answered Alcohol UseStandard Drinks/WeekCommentsYes0 (1 standard drink = 0.6 oz pure alcohol)rarelyChildcareAnswerDate WpbcqrgeFzqgizurlJjbsskd86/12/2019Employment AnswerDate QtxluglmDgctlzrzcpAtcbwwk61/12/2019Hunger ScreeningAnswerDate RecordedWithin the past 12 months we worried whether our food would run out before we got money to buy more.Never True03/19/2022Within the past 12 months the food we bought just didn't last and we didn't have money to get more.Never True3Purpose - LifeAnswerDate RecordedPurpose and direction in life Nbhputk84/11/2021CommentsNoSex and Gender InformationValueDate Recorded Sex Assigned at BirthNot on fileLegal BcoKkkqdp53/06/2015 12:11 PM EDTGender IdentityNot on fileSexual OrientationNot on file Last Filed Vital Signs Vital SignReadingTime TakenCommentsBlood Dsgzuzff352/7004/ 8:32 AM EDT Lblqr164706/22/2022 8:42 AM GPRVxswphqhxnl48.2 ??C (97.1 ??F)06/22/2022 6:48 AM EDTRespiratory Cztx923206/22/2022 8:42 AM EDTOxygen Ygznaakooy01%06/22/2022 8:42 AM EDTInhaled Oxygen Concentration--Boyqhy73.5 kg (140 lb)06/22/2022 6:48 AM EDT Nzinjq225 cm (5' 3 )06/22/2022 6:48 AM EDTBody Mass Index24.8006/22/2022 6:48 AM EDT Plan of Treatment Health MaintenanceDue DateLast DoneCommentsDepression Bumdwoiiy62/14/1981Tobacco Tbofvjxib53/14/1981DTaP,Tdap and Td Vaccines (1 - Tdap)08/13/1987Pap Smear 1989Zoster (Shingles) Vaccine (1 of 2)2018Adult BMI Screening OVID-19 Vaccine ( season)51, 12/12/2020, 05/16/2020, Additional history existsInfluenza Grlopei0710/30/2024 12/12/2021, 12/26/2020, 12/13/2019, Additional history existsColonoscopy , 06/22/2022 Medical Devices Not on file Procedures Procedure NamePriorityDate/TimeAssociated DiagnosisCommentsPROVATION COLONOSCOPY Cquespl1106/22/2022 6:42 AM EDT from Last 3 Months or Most Recently Relevant to Health Maintenance Results * Colonoscopy Report (06/22/2022 6:42 AM EDT)Specimen (Source)Anatomical Location / LateralityCollection Method / VolumeCollection TimeReceived Time Narrative SYSTEMGENERATED, DOCUMENTATION - 06/22/2022 6:42 AM EDT This order has been auto-finalized for image and report archival in PACs. *For full report details, please reach out to your physician. ??This image is visible to you in MyChart.* Authorizing ProviderResult TypeResult StatusMichael E Grillis DOIMG OR IMG ORDERABLESFinal Result from Last 3 Months or Most Recently Relevant to Health Maintenance Insurance Care Teams Team MemberRelationshipSpecialtyStart DateEnd Date Wellington Myers DO PCP - GeneralObstetrics & Gynecology05/11/19
--- OUTSIDE RECORDS SUMMARY | 2024-12-26 19:29 | XMS_ITS | Clinical Summary ---
Author Organization [facility] Address [address] [place], [place] [address] Care Team Providers Care Physically Impaired Teacher Name Role Phone Simeon Moreno Primary Care Provider Allergies No known active allergies Medications No known medications Active Problems ProblemNoted DateDiagnosed DateBenign neoplasm of skin, site unspecified 10/25/2008Hemangioma of skin and subcutaneous fiirjd9306/27/2008 Social History Tobacco UseTypesPacks/DayYears UsedDateSmoking Tobacco: NeverAlcohol UseStandard Drinks/WeekCommentsNot Asked0 (1 standard drink = 0.6 oz pure alcohol) CommentsNoSex and Gender InformationValueDate RecordedSex Assigned at BirthNot on fileLegal RocBluuea70/02/2012 8:19 AM ESTGender IdentityNot on fileSexual OrientationNot on file Plan of Treatment Health MaintenanceDue DateLast DoneCommentsAnxiety Miiphezco48/14/1987Depression Ivrxnmoji53/14/1987HIV Zamfswtsv22/14/1987Hepatitis C Txuqsceot60/14/1987 DTaP,Tdap,Td Vaccine (1 - Tdap)08/13/1987Hepatitis B Vaccine (1 of 3 - 19+ 3- dose series)08/13/1987Cervical Cancer Myrjowmgq81/14/1990Mammogram Screening 2008CT Dsboegjyljpz49/14/2014Cologuard (FIT-DNA)2013Colonoscopy 2013Colorectal Cancer Qaczvbftt32/14/2014Diabetes Bkekzzlff01/14/2014Fecal Occult Blood2013Lipid Hauevmhio21/14/8610Vknablykpphst17/14/2014 Pneumococcal Vaccine: 50+ (1 of 1 - PCV)2018Shingrix Vaccine (1 of 2) 2018Covid-19 Vaccine (2024-26 season)2024Influenza Vaccine (#1) 2024 Insurance Care Teams Team MemberRelationshipSpecialtyStart DateEnd Date Simeon Moreno [address] [place] [address] PCP - General06/27/08
--- OUTSIDE RECORDS SUMMARY | 2024-12-26 19:29 | XMS_ITS | Clinical Summary ---
Author Organization [facility] Address [address] [facility] [place] [address] Care Team Providers Care Wet Mixer Name Role Phone Lala Brown Unavailable Allergies No known active allergies Medications MedicationSigDispense QuantityRefillsLast FilledStart DateEnd DateStatus Dimethicone (Restore Cleanser & Moisturizer) 2 % liquid Administer 1 Application into affected eye(s) DailyActive metFORMIN XR (Glucophage-XR) 500 MG 24 hr tablet Indications:Insulin resistanceTake 1 tablet (500 mg) by mouth in the evening. Take with meals Do not crush, chew, or split. 30 tablet 1104Active Additional Information Patient not taking.Reported on 12/26/2024 Active Problems No known active problems Encounters DateTypeDepartmentCare NdhsEazvfvjxoxm67/28/2025 11:00 AM EDTProcedure Visit [facility] [place] [address] Lala Brown PA Hormone disorder (Primary Dx); Well woman exam with routine gynecological exam; Breast cancer screening by mammogram; Abnormal thyroid stimulating hormone (TSH) level; Wellness uxcxsuymhms57/28/2025amboo flowsheet [facility] [address] [place] [address] Lala Brown PA from Last 3 Months Family History Medical HistoryRelationNameCommentsProstate cancerFatherRelationNameStatus CommentsFather Social History Tobacco UseTypesPacks/DayYears UsedDateSmoking Tobacco: NeverSmokeless Tobacco: Never Tobacco Cessation:Counseling Given: Not Answered CommentsUnknownSex and Gender InformationValueDate RecordedSex Assigned at BirthNot on fileLegal ZmyKwladc55/15/2023 10:08 PM EDTGender IdentityNot on fileSexual OrientationNot on file Last Filed Vital Signs Vital SignReadingTime TakenCommentsBlood Jiycmdcw015/7010 11:34 AM EDT Pulse--Temperature--Respiratory Rate--Oxygen Saturation--Inhaled Oxygen Concentration--Pwozre40.4 kg (150 lb 12.8 oz)12/26/2024 11:34 AM IUMDbhaoi784 cm (5' 3 )07/20/2023 9:11 AM EDTBody Mass Index26.71007/20/2023 9:11 AM EDT Plan of Treatment DateTypeDepartmentCare Team (Latest Contact Info)Ctzdjqroksv44/12/2025 8:30 AM ESTOffice Visit [facility] [address] [facility] [place] [address] Lala Brown PA [address] [facility] [address] [place], [place] [id number] 08/28/2025 9:30 AM EDTOffice Visit [facility] [place] [facility] [address] [place] [address] Pearl Little MD [address] [place] [address] Health MaintenanceDue DateLast DoneCommentsCT Joglmfhrvbqn55/14/1969FIT-DNA 1968FIT1968FOBT1968 9287Bbtsxipznqgqd15/14/1969MMR Vaccines (1 of 1 - Standard series)1969DTaP/Tdap/Td Vaccines (1 - Tdap)08/13/1975Hepatitis B Vaccines (1 of 3 - 19+ 3-dose series)08/13/19878112Txdgryhld98/13/202506/, 08/06/2021, 08/06/2021, Additional history existsCOVID-19 Vaccine ( season)510/, 05/16/2020, 04/25/2020ap Smear07/19/2026 07/20/2023, 04/30/2022ervical Cancer Gyoydlrjq54/02/2028HPV/Modgiv5205/01/2027 Oemgzufizpb24/09/203305/10/2022, 06/22/2022, 06/22/2022, Additional history existsColorectal Cancer Ugobejacy82/09/2033Influenza KeyumvhHokqqhzbe58/20/2025, 12/22/2022, 12/12/2021, Additional history existsHIB VaccinesAged OutNo longer eligible based on patient's age to complete this topicHPV VaccinesAged OutNo longer eligible based on patient's age to complete this topicHepatitis A VaccinesAged OutNo longer eligible based on patient's age to complete this topic IPV VaccinesAged OutNo longer eligible based on patient's age to complete this topicMeningococcal B VaccineAged OutNo longer eligible based on patient's age to complete this topicMeningococcal VaccineAged OutNo longer eligible based on patient's age to complete this topicPneumococcal Vaccine: Pediatrics (0 to 5 Years) and At-Risk Patients (6 to 64 Years)Aged OutNo longer eligible based on patient's age to complete this topicRotavirus VaccinesAged OutNo longer eligible based on patient's age to complete this topic Procedures Procedure NamePriorityDate/TimeAssociated DiagnosisCommentsPAP SMEARRoutine 07/20/2023 12:00 AM EDTfrom Last 3 Months or Most Recently Relevant to Health Maintenance Results * Pap Smear (07/20/2023 12:00 AM EDT)Specimen (Source)Anatomical Location / LateralityCollection Method / VolumeCollection TimeReceived TimeSwabCervical swab / Unknown Narrative Authorizing ProviderResult TypeResult StatusFazio Nurse [facility]oms [facility] ObLAB CYTOLOGY ORDERABLESFinal ResultPerforming OrganizationAddressCity/State/ZIP CodePhone Number EXTERNAL LAB from Last 3 Months or Most Recently Relevant to Health Maintenance Insurance Care Teams Team MemberRelationshipSpecialtyStart DateEnd Date Lala Brown PA [address] [place] [address] PCP - Medical [place] Commercial03/1411
--- OUTSIDE RECORDS SUMMARY | 2024-12-26 19:29 | XMS_ITS | Encounter Summary ---
Author Organization [facility] Address [address] [place] [address] Care Team Providers Care Clinical Informatics Director Name Role Phone Lala Brown Unavailable Encounter Details DateTypeDepartmentCare Team (Latest Contact Info)Zuxidhkijji24/28/2025amboo flowsheet [facility] [address] [place] [address] Lala Brown PA [address] [place], [facility] Social History Tobacco UseTypesPacks/DayYears UsedDateSmoking Tobacco: NeverSmokeless Tobacco: NeverCommentsUnknownSex and Gender InformationValueDate RecordedSex Assigned at BirthNot on fileLegal IcsMvrwzj99/15/2023 10:08 PM EDTGender IdentityNot on fileSexual OrientationNot on filedocumented as of this encounter Plan of Treatment DateTypeDepartmclaren thumb regionCare Team (Latest Contact Info)Tgcxjccazqz69/12/2025 8:30 AM ESTOffice Visit [facility] [address] [place] [address] Lala Brown PA [address] [facility] [place] [address] 08/28/2025 9:30 AM EDTOffice Visit [facility] [place] [facility] [address] [place] [phone] Pearl Little MD [address] [place] [address] [place] [address] documented as of this encounter Visit Diagnoses Not on filedocumented in this encounter Care Teams Team MemberRelationshipSpecialtyStart DateEnd Date Lala Brown PA [address] [facility] [facility] [place] [address] PCP - Medical [place] [employer]09/30/1411documented as of this encounter
--- OUTSIDE RECORDS SUMMARY | 2024-12-26 19:30 | XMS_ITS | Clinical Summary ---
Author Organization [facility] Address [address] [place] [address] Phone Care Team Providers Care Microsoft Exchange Administrator Name Role Phone Wellington Myers DO Primary Care Provider [phone] Family History Medical HistoryRelationNameCommentsBreast cancerMaternal GrandmotherRelationName StatusCommentsMaternal Grandmother Social History Tobacco UseTypesPacks/DayYears UsedDateSmoking Tobacco: Never Assessed CommentsNoSex and Gender InformationValueDate RecordedSex Assigned at BirthNot on fileLegal YxqGuocra45/25/2022 2:35 PM ESTGender IdentityNot on fileSexual OrientationNot on file Last Filed Vital Signs Vital SignReadingTime TakenCommentsBlood Pressure--Pulse--Temperature-- Respiratory Rate--Oxygen Saturation--Inhaled Oxygen Concentration--Owlesu07.9 kg (143 lb)2023 10:10 AM CPJSqclik071 cm (5' 3 )2023 10:10 AM EDTBody Mass Index25.33008/12/2023 10:10 AM EDT Plan of Treatment Health MaintenanceDue DateLast DoneCommentsCT Xjkvxxsoakhu56/14/1969FIT-DNA (Cologuard)1968FIT1968HIV Qcbhmwsju21/14/1969Lipid Panel1968 Awsidtkjxdutz39/14/1969MMR Vaccines (1 of 1 - Standard series)1969Diabetes Flqwfojre79/14/1987Hepatitis C Fasvkzgjn21/14/1987Hepatitis B Vaccines (1 of 3 - 19+ 3-dose series)08/13/1987HPV/Sfswbv6908/12/1989DTaP/Tdap/Td Vaccines (1 - Tdap) 1990Pneumococcal Vaccine (1 of 1 - PCV)2018Zoster Vaccines (1 of 2) 2018Yearly Adult Lkpzvota51/22//4295Koooctjpp71/13/2025 2023, 08/06/2021, 08/06/2021, Additional history existsInfluenza Vaccine (#1)/, 12/12/2021, 12/26/2020, Additional history exists COVID-19 Vaccine ( season), 12/12/2020, 05/16/2020, Additional history existsCervical Cancer Hczsilhkc36/02/2026Pap Smear/3151Fzzxxsncewb07/24//olorectal Cancer Ickgisuhj84/24/2033HIB VaccinesAged OutNo longer eligible based on patient's age to complete this topicHPV VaccinesAged OutNo longer eligible based on patient's age to complete this topicHepatitis A VaccinesAged OutNo longer eligible based on patient's age to complete this topicIPV VaccinesAged OutNo longer eligible based on patient's age to complete this topicMeningococcal VaccineAged OutNo longer eligible based on patient's age to complete this topicRotavirus Vaccines Aged OutNo longer eligible based on patient's age to complete this topic Procedures Procedure NamePriorityDate/TimeAssociated DiagnosisCommentsBI MAMMO BILATERAL SCREENING FJQABOJTTMDFSVfdothv37/13/2024 10:24 AM EDT Encounter for screening mammogram for malignant neoplasm of breast from Last 3 Months or Most Recently Relevant to Health Maintenance Results * BI mammo bilateral screening tomosynthesis (2023 10:24 AM EDT)Anatomical RegionLateralityModalityBreastBilateralMammographySpecimen (Source)Anatomical Location / LateralityCollection Method / VolumeCollection TimeReceived Time 08/16/2023 1:26 PM EDT08/16/2023 1:26 PM EDT Impressions 08/16/2023 1:25 PM EDT No mammographic evidence of malignancy. ?? BI-RADS CATEGORY: BI-RADS Category: ??1 Negative. Recommendation: ??Annual Screening. Recommended Date: ??1 Year. Laterality: ??Bilateral. ? For any future breast imaging appointments, please call [phone] ([phone]). ? MACRO: None ?? Signed by: Megan Lynch 08/16/2023 1:25 PM Dictation workstation: ?? [id number] Narrative 08/16/2023 1:25 PM EDT Interpreted By: Megan Lynch, STUDY: BI MAMMO BILATERAL SCREENING TOMOSYNTHESIS; ??2023 10:24 am ?? ACCESSION NUMBER(S): [id number] ?? ORDERING CLINICIAN: INTERFACE UNSPECIFIELDPROVIDER ?? INDICATION: Screening. Family history of breast cancer. ?? COMPARISON: 08/06/2021, 05/20/2018. ?? FINDINGS: 2D and tomosynthesis images were reviewed at 1 mm slice thickness. ?? Density: ??There are areas of scattered fibroglandular tissue. ?? No suspicious masses or calcifications are identified. ?? Procedure Note Megan Lynch MD - 08/16/2023 Interpreted By: Megan Lynch, STUDY: BI MAMMO BILATERAL SCREENING TOMOSYNTHESIS; 2023 10:24 am ACCESSION NUMBER(S): [id number] ORDERING CLINICIAN: INTERFACE UNSPECIFIELDPROVIDER INDICATION: Screening. Family [...] any future breast imaging appointments, please call [phone] ([phone]). MACRO: None Signed by: Megan Lynch 08/16/2023 1:25 PM Dictation workstation: [id number] Authorizing ProviderResult TypeResult StatusAmy Young Brown PAIMG BI PROCEDURESFinal Result from Last 3 Months or Most Recently Relevant to Health Maintenance Insurance [address] [place], [place] [id number] Care Teams Team MemberRelationshipSpecialtyStart DateEnd Date Wellington Myers DO [address] [facility] [address], [place] [id number] [facility] - General05/20/18
--- OUTSIDE RECORDS SUMMARY | 2024-12-26 19:30 | XMS_ITS | Patient Health Record ---
Author Organization [facility] Address [address] [place] [address] Care Team Providers Care Graduate Engineer Name Role Phone Can Sam [phone] Reason For Referral No Information Social History Tobacco Use: Social History Observation Description Date Details (start date - stop date) Never Smoker NA - NA Smoking History Question Answer Notes Smoking Status NonSmoker Problems Problem Type SNOMED Code ICD Code Onset Dates Problem Status W/U Status Risk Notes Problem [id number] Closed displaced fracture of fifth metatarsal bone of left foot, initial encounter (S92.352A) OrrihlsrqfajhxhSeaobkf52104391Ubkwht displaced fracture of fourth metatarsal bone of left foot, initial encounter (S92.342A)VlpczloejzzbvnhLfqamsb42516189 Closed displaced fracture of fourth metatarsal bone of left foot with routine healing, subsequent encounter (S92.342D)TucvtasdnojjngxMevglhg01876804Kvdydg displaced fracture of fifth metatarsal bone of left foot with routine healing, subsequent encounter (S92.352D)[id number] post- operative pain (G89.18)Activeconfirmed Plan Of Treatment No Information Insurance Providers Payer Name Payer Address Payer Phone Subscriber Number Group Number Insured Name Patient Relationship to Insured Coverage Start Date Coverage End Date [facility] [address] [place] [address] [id number] Krystal Gomez Self - patient is the insured Medical (General) History Medical History History ICD Code Do you have a pacemaker or A ICD(automatic internal cardiac defibrillator)? No Latex Allergy NoDrug Allergies: NoBariatric Surgery: NoSurgical History Surgery Date(Month/Year) broke wrist 12/15
--- OUTSIDE RECORDS SUMMARY | 2024-12-26 19:30 | XMS_ITS | Clinical Summary ---
Author Organization [facility] Address [address], [address] [place] [address] Care Team Providers Care Analytical Technician Name Role Phone Unavailable Primary Care Provider Unavailabl e Allergies No known active allergies Medications MedicationSigDispense QuantityRefillsLast FilledStart DateEnd DateStatus oxyCODONE-acetaminophen (PERCOCET) 5-325 MG per tablet Take 2 tablets by mouth every 4 hours as needed for PainActive Active Problems No known active problems Social History Tobacco UseTypesPacks/DayYears UsedDateSmoking Tobacco: NeverAlcohol UseStandard Drinks/WeekCommentsYes0 (1 standard drink = 0.6 oz pure alcohol)SOCIAL CommentsNoSex and Gender InformationValueDate RecordedSex Assigned at BirthNot on fileLegal SsbFoeifd56/19/2016 2:06 PM EDTGender IdentityNot on fileSexual OrientationNot on file Last Filed Vital Signs Vital SignReadingTime TakenCommentsBlood Nuyywwgs857/7310 1:10 PM EDT Ttned347812/20/2015 1:10 PM NQKHmopdbsjciu74.8 ??C (98.2 ??F)12/20/2015 1:10 PM EDTRespiratory Bvqq9279 1:10 PM EDTOxygen Entreshrnq56%12/20/2015 1:10 PM EDTInhaled Oxygen Concentration--Uejrtl21.5 kg (140 lb)12/20/2015 8:53 AM EDT Tqlyyv983 cm (5' 3 )12/20/2015 8:53 AM EDTBody Mass Index24.81 8:53 AM EDT Plan of Treatment Not on file Insurance
[2024-12-29 14:09] LABS: Age Gdln ACOG Testing Note (.); IGP, Aptima HPV, rfx 16/18,45 Note (.)
== END 2024-12-26 19:27 | disposition home or self-care (01) ==
LOC: LAB 19:26
PROVIDERS: Visit Provider Physician Assistant
DX: Z01.419 Encounter for gynecological examination (general) (routine) without abnormal findings (principal)
CPT/HCPCS: 87624; 88175

== ENCOUNTER 2025-01-01 07:18 | Outpatient (OUT) | payer OTHER, SELFPAY ==
--- OUTSIDE RECORDS SUMMARY | 2024-12-26 10:00 | XMS_ITS | Encounter Summary ---
Author Organization [facility] Address [address] [facility] [place] [address] Care Team Providers Care Manufacturing Engineering Intern Name Role Phone Lala Brown Unavailable Reason for Visit * ReasonCommentsWell Women Visit Encounter Details DateTypeDepartmentCare Team (Latest Contact Info)Ootjwxmbxma29/28/2025 11:00 AM EDTProcedure Visit [facility] [address] [place] [address] Lala Brown PA [address] [facility] [place] [address] Hormone disorder (Primary Dx); Well woman exam with routine gynecological exam; Breast cancer screening by mammogram; Abnormal thyroid stimulating hormone (TSH) level; Wellness examination Social History Tobacco UseTypesPacks/DayYears UsedDateSmoking Tobacco: NeverSmokeless Tobacco: NeverCommentsUnknownSex and Gender InformationValueDate RecordedSex Assigned at BirthNot on fileLegal ShiRgmuhm31/15/2023 10:08 PM EDTGender IdentityNot on fileSexual OrientationNot on filedocumented as of this encounter Last Filed Vital Signs Vital SignReadingTime TakenCommentsBlood Tdvefqrf771/7012/26/2024 11:34 AM EDT Pulse--Temperature--Respiratory Rate--Oxygen Saturation--Inhaled Oxygen Concentration--Gwfapa10.4 kg (150 lb 12.8 oz)12/26/2024 11:34 AM EDTHeight--Body Mass Index26.7105 9:11 AM EDTdocumented in this encounter Progress Notes * MARIA TERESA Mojica - 12/26/2024 11:00 AM EDT Reason for Appointment: Patient ID: Krystal Gomez is a 54 y.o. female who presents for Well Women Visit Patient presents today for Annual Exam. MEDICATIONS Current Outpatient Medications Medication Instructions Dimethicone (Restore Cleanser & Moisturizer) 2 % liquid 1 Application, Daily metFORMIN XR (GLUCOPHAGE-XR) 500 mg, Oral, Daily with evening meal, Do not crush, chew, or split. ALLERGIES No Known Allergies PROBLEMS Active Ambulatory Problems Diagnosis Date Noted No Active Ambulatory Problems Resolved Ambulatory Problems Diagnosis Date Noted No Resolved Ambulatory Problems No Additional Past Medical History HISTORY PAST MEDICAL HISTORY SOCIAL HISTORY History reviewed. No pertinent past medical history. Social History Tobacco Use Smoking status: Never Smokeless tobacco: Never Substance Use Topics Alcohol use: Not on file Drug use: Not on file FAMILY HISTORY Family History Problem Relation Name Age of Onset Prostate cancer Father SURGICAL HISTORY History reviewed. No pertinent surgical history. REVIEW OF SYSTEMS Review of Systems: Review of Systems Constitutional: Negative. HENT: Negative. Eyes: Negative. Respiratory: Negative. Cardiovascular: Negative. Gastrointestinal: Negative. Genitourinary: Negative. Musculoskeletal: Negative. Skin: Negative. Neurological: Negative. All other systems reviewed and are negative. Hematological: Negative. Endocrine: Negative. Allergic/Immunologic: Negative. OBJECTIVE Objective: Physical Exam Constitutional: Appearance: Normal appearance. She is well-developed. Genitourinary: Vulva normal. Cardiovascular: Rate and Rhythm: Normal rate and regular rhythm. Pulmonary: Effort: Pulmonary effort is normal. Breath sounds: Normal breath sounds. Abdominal: General: Bowel sounds are normal. There is no distension. Palpations: Abdomen is soft. Tenderness: There is no abdominal tenderness. There is no guarding or rebound. Musculoskeletal: General: No swelling. Normal range of motion. Right lower leg: No edema. Left lower leg: No edema. Neurological: Mental Status: She is alert and oriented to person, place, and time. Skin: General: Skin is warm and dry. Psychiatric: Mood and Affect: Mood normal. Behavior: Behavior normal. Vitals and nursing note reviewed. Exam conducted with a vice president research present. Vitals: Estimated body mass index is 26.71 kg/m?? as calculated from the following: Height as of 07/20/23: 5' 3 . Weight as of this encounter: 150 lb 12.8 oz. BP: 120/70 No LMP recorded. ASSESSMENT & PLAN ICD-10-CM 1. Hormone disorder E34.9 Estradiol Estrone Cortisol, free DHEA-sulfate Sex hormone binding globulin Insulin, total Serotonin serum T4, free T3, reverse Progesterone Vitamin D 1,25 dihydroxy Ferritin T3, free Thyroglobulin Thyroglobulin Antibody Thyroid peroxidase antibody T4 TESTOSTERONE, FREE Testosterone, free, total Glucose, random C-peptide Cortisol, free Insulin, total Serotonin serum Thyroglobulin Thyroglobulin Antibody T4 Glucose, random C-peptide 2. Well woman exam with routine gynecological exam Z01.419 THIN PREP TIS PAP AND HR HPV DNA 3. Breast cancer screening by mammogram Z12.31 Bilateral screening mammogram Bilateral screening mammogram 4. Abnormal thyroid stimulating hormone (TSH) level R79.89 TSH Hemoglobin A1c 5. Wellness examination Z00.00 Hemoglobin A1c CBC auto differential Cholesterol, total Comprehensive metabolic panel CBC auto differential Orders Placed This Encounter Procedures Bilateral screening mammogram TSH Hemoglobin A1c CBC auto differential Cholesterol, total Comprehensive metabolic panel Estradiol Estrone Cortisol, free DHEA-sulfate Sex hormone binding globulin Insulin, total Serotonin serum T4, free T3, reverse Progesterone Vitamin D 1,25 dihydroxy Ferritin T3, free Thyroglobulin Thyroglobulin Antibody Thyroid peroxidase antibody T4 TESTOSTERONE, FREE Testosterone, free, total Glucose, random C-peptide Annual Wellness Exam: Patient presents today for routine annual exam. Patient states she has complaints of weight gain and perimenopausal symptoms. Patients vitals were reviewed and within normal limits. Growth and development is noted to be appropriate for age. No mental health concerns was expressed. Pap Smear: Speculum was inserted into the vagina and pap was obtained without difficulty. HPV testing was performed per age guideline. Patient was advised that pap results could take anywhere from 7 to 10 days to receive and our office will reach out to the patient with those once we have them. Patient can also view results via [employer]. I reinforced importance of condom use for STI prevention. Patient declined cultures to be performed with today's visit. Breast Exam: Upon examination, clinical breast exam was noted to be normal and screening mammogram was ordered and given to patient to have obtained. Patient was counseled on breast self-awareness, including the importance of knowing what is normal for her own breasts and promptly reporting any changes such as new lumps, skin dimpling, nipple discharge, or pain. Screening mammogram was recommended annually. Discussed signs and symptoms of breast cancer and when to seek medical attention. Answered all patient questions. DEXA Counseling: DEXA scan ordered and given to the patient to have performed for osteoporosis screening per guidelines. Patient counseled on bone health, including the importance of calcium and vitamin D intake, weight-bearing exercise, fall prevention, and avoiding tobacco and excessive alcohol. Discussed purposeof DEXA in assessing fracture risk and monitoring bone density. Patient advised results will be reviewed upon completion and next steps discussed as needed. Patient states despite eating right and daily exercise she contiunes to gain weight. She wishes to have labs including hormone panel and follow up with results in office. She may decide to start a buderer compound or bijuva for HRT Follow Up: Patient is to return to our office in one year for annual exam unless needed otherwise. Documented by MARIA TERESA Mojica on behalf of: MARIA TERESA Mojica documented in this encounter Plan of Treatment DateTypeDepartmentCare Team (Latest Contact Info)Nsfogyvqrtc52/12/2025 8:30 AM ESTOffice Visit [facility] [address] [place] [phone] Lala Brown PA [address] [facility] [place] [address] 08/28/2025 9:30 AM EDTOffice Visit [facility] [address] [place] [address] Pearl Little MD [address] [place] [address] NameTypePriorityAssociated DiagnosesOrder ScheduleBilateral screening mammogram ImagingRoutine Breast cancer screening by mammogram Expected: 12/26/2024, Expires: 02/25/2026THIN PREP TIS PAP AND HR HPV DNA Pathology and CytologyRoutine Well woman exam with routine gynecological exam Ordered: 12/26/2024TSHLabRoutine Abnormal thyroid stimulating hormone (TSH) level Ordered: 12/26/2024Hemoglobin A1tOqtAlqvzta Abnormal thyroid stimulating hormone (TSH) level Wellness examination Ordered: 12/26/2024BC auto differentialLabRoutine Wellness examination Expected: 12/26/2024 (Approximate), Expires: 12/26/2025holesterol, totalLab Routine Wellness examination Ordered: 12/26/2024omprehensive metabolic panelLabRoutine Wellness examination Ordered: 12/26/2024EstradiolLabRoutine Hormone disorder Ordered: 12/26/2024EstroneLabRoutine Hormone disorder Ordered: 12/26/2024ortisol, freeLabRoutine Hormone disorder Expected: 12/26/2024 (Approximate), Expires: 12/26/2025DHEA-sulfateLabRoutine Hormone disorder Ordered: 12/26/2024Sex hormone binding globulinLabRoutine Hormone disorder Ordered: 12/26/2024Insulin, totalLabRoutine Hormone disorder Expected: 12/26/2024 (Approximate), Expires: 12/26/2025Serotonin serumLabRoutine Hormone disorder Expected: 12/26/2024 (Approximate), Expires: 12/26/2025T4, freeLabRoutine Hormone disorder Ordered: 12/26/2024T3, reverseLabRoutine Hormone disorder Ordered: 12/26/2024ProgesteroneLabRoutine Hormone disorder Ordered: 12/26/2024Vitamin D 1,25 dihydroxyLabRoutine Hormone disorder Ordered: 12/26/2024FerritinLabRoutine Hormone disorder Ordered: 12/26/2024T3, freeLabRoutine Hormone disorder Ordered: 12/26/2024ThyroglobulinLabRoutine Hormone disorder Expected: 12/26/2024 (Approximate), Expires: 12/26/2025Thyroglobulin AntibodyLab Routine Hormone disorder Expected: 12/26/2024 (Approximate), Expires: 12/26/2025Thyroid peroxidase antibodyLabRoutine Hormone disorder Ordered: 12/26/20244370Q0ZwhIcqkrbr Hormone disorder Expected: 12/26/2024 (Approximate), Expires: 12/26/2025TESTOSTERONE, FREELab Routine Hormone disorder Ordered: 12/26/2024Testosterone, free, totalLabRoutine Hormone disorder Ordered: 12/26/2024Glucose, randomLabRoutine Hormone disorder Expected: 12/26/2024 (Approximate), Expires: 12/26/2025-peptideLabRoutine Hormone disorder Expected: 12/26/2024 (Approximate), Expires: 12/26/2025documented as of this encounter Visit Diagnoses Diagnosis Hormone disorder- Primary Unspecified endocrine disorder Well woman exam with routine gynecological exam Routine gynecological examination Breast cancer screening by mammogram Abnormal thyroid stimulating hormone (TSH) level Wellness examination documented in this encounter Care Teams Team MemberRelationshipSpecialtyStart DateEnd Date Lala Brown PA [address] [place] [address] [place] [address] PCP - [facility] [place] Commercial/documented as of this encounter
--- OUTSIDE RECORDS SUMMARY | 2025-01-01 07:21 | XMS_ITS | CCD ---
Author Organization [facility] Care Team Providers Care Breastfeeding Program Coordinator Name Role Phone Dequan Myers Attending Unavailable LUCIA ., DR BAIRES Admitting Unavailable LUCIA ., DR BAIRES Attending Unavailable MISC, DR VALERA Primary Care Unavailable LUCIA ., DR BAIRES Consulting Unavailable LUCIA ., DR BAIRES Admitting Unavailable LUCIA ., DR BAIRES Attending Unavailable MISC, DR VALERA Primary Care Unavailable LUCIA ., DR BAIRES Consulting Unavailable Dequan Myers DO Primary Care Provider LALA ELAM Referring Unavailable DEQUAN MYERS Primary Care Unavailable Lala Stinson Unavailable Lala Stinson Unavailable PEARL GR Attending Unavailable LALA ELAM Attending Unavailable Allergies Allergy ClassificationReported Allergen(s)Allergy TypeDate of OnsetReaction(s) Facility (1 source)ALLERGIES NOT ON FILE; Translations: [ALLERGIES NOT ON FILE]Propensity to adverse reactions (disorder)[facility] Medications Current Medications MedicationDrug Class(es)DatesSig (Normalized)Sig (Original)dimethicone 20 mg/ml topical spray (7 sources)Dimethicone (Restore Cleanser & Moisturizer) 2 % liquid Administer 1 Application into affected eye(s) Daily Abbeoh11 hr metFORMIN hydrochloride 500 mg extended release oral tablet (6 sources)BiguanideStart: 86-12-1710xzrs 1 tablet by mouth every twenty-four hours [...] papillomavirus (HPV); Translations: [ENC SCREENING HUMAN PAPILLOMAVIRUS]Onset: 83-63-8785GtyudtygTgiaf and unspecified benign neoplasm (2 sources)Melanocytic nevus of trunk; Translations: [Melanocytic nevi of trunk] 96-06-8659TmqoaqqfBcmot circulatory disease (2 sources)Spider nevus; Translations: [Nevus, non-neoplastic]65-00-5423Mzshpnxk Other congenital anomalies (2 sources)Birthmark; Translations: [Congenital non-neoplastic nevus]08-28-2024 ChronicOther endocrine disorders (1 source)Disorder of endocrine system; Translations: [Endocrine disorder, unspecified]31-99-4470UhtckrghDcqdy screening for suspected conditions (not mental disorders or infectious disease) (13 sources)Encounter for screening mammogram for malignant neoplasm of breast; Translations: [Encounter for screening for malignant neoplasm of cervix]Onset: 42-11-1581PlhxmoprRipdr skin disorders (2 sources)Seborrheic keratosis; Translations: [Other seborrheic keratosis] 04-20-6998AuujzpwsKlbxh skin disorders (2 sources)Lentiginosis; Translations: [Other melanin hyperpigmentation] 11-59-6996HjwcwdcvMoupd infection (2 sources)Verruca vulgaris; Translations: [Other viral warts]39-76-7802Skfgfipq Results Test NameValueInterpretationReference RangeFacilityIGP,APTIMA HPV,AGE GDLNon 12-12-0666QID GDLN ACOG TESTINGNote.NOMS HealthcareComment on above:TESTS RESULT FLAG UNITS REF RANGE LAB Clinician Provided Cytology Information Source.............Cervix;Endocervix No. of containers..01 ThinPrep Vial Age Algo ACOG Anny... FLAG LEGEND: L-Low Normal,H-High Normal,LL-Alert Low,HH-Alert High <-Panic Low,>-Panic High,A-Abnormal,AA-Critical Abnormal Performed at: 01 =[address] [address] Madeline Tuttle MD, HPV APTIMANegativeNegativeNOMS HealthcareComment on above:This nucleic acid amplification test detects fourteen high- risk HPV types (16,18,31,33,35,39,45,51,52,56,58,59,66,68) without differentiation. Performed at: =[facility] [id number] Story Analyst: Madeline Tuttle MD, Phone: [phone] Performed at: [address] [id number] Story Analyst: Madeline Tuttle MD, Phone: [phone] IGP, APTIMA HPV, RFX 16/18,45Note.NOMS HealthcareComment on above:TESTS RESULT FLAG UNITS REF RANGE LAB DIAGNOSIS: 02 NEGATIVE FOR INTRAEPITHELIAL LESION OR MALIGNANCY. CELLULAR CHANGES ASSOCIATED WITH ATROPHY ARE PRESENT. Specimen adequacy: 02 Satisfactory for evaluation. Endocervical and/or squamous metaplastic cells (endocervical component) are present. Performed by: 02 Carlos Irizarry, Potato Chip Maker ([facility]) . 02 Note: Note 02 The Pap smear is a screening test designed to aid in the detection of premalignant and malignant conditions of the uterine cervix. It is not a diagnostic procedure and should not be used as the sole means of detecting cervical cancer. Both false-positive and false-negative reports do occur. Test Methodology: Note 02 This liquid based ThinPrep(R) pap test was interpreted using the [employer](R) Genius(TM) Cervical Algorithm whole slide imaging system. HPV Genotype Reflex Note 02 Criteria not met, HPV Genotype not performed. FLAG LEGEND: L-Low Normal,H-High Normal,LL-Alert Low,HH-Alert High <-Panic Low,>-Panic High,A-Abnormal,AA-Critical Abnormal Performed at: 02 [facility] [address] [address] Madeline Tuttle MD, BRUSH-SPATULA CERVIX ENDOCERVIX CLINISYNCNOChristian HospitalMLR HEMOGLOBIN A1Con 55-26-7173Qmrhivh [Mass/Vol]97 mg/dLNOChristian HospitalGpbmxkvmtcRlX1i (Bld) [Mass fraction]5.0 %4.5 - 6.2 %[facility] Comment on above:ADA RECOMMENDED LIMIT 4.0 - 6.0 ADA THERAPEUTIC TARGET < 7.0 ACTION SUGGESTED > 7.0 CLINISYMANOChristian HospitalXR DEXA AXIAL SKELETONon 36-80-2440H[address] [address] XRay Report Signed Patient: KRYSTAL POWELL MR#: [id number] : 1970 Acct:[id number] Age/Sex: 53 / F ADM Date: 09/07/23 Loc: RAD Attending Dr: Dequan Myers D.O. Ordering Physician: Dequan Myers D.O. Date of Service: 09/07/23 Procedure(s): XR DEXA axial skeleton Accession Number(s): [id number] cc: Dequan Myers D.O.; Physician,Non-Staff [address] [place] [id number] Patient Name: KRYSTAL POWELL MRN: [facility]:[id number] date: 1970 Sex: F Assigned Patient Location: [facility] Current Patient Location: [facility] Accession/Order Number: [id number] Exam Date: 09/07/2023 08:30 Report Date: 09/07/2023 09:14 At the request of: DEQUAN MYERS Procedure: XR DEXA axial skeleton EXAMINATION: XR DEXA axial skeleton, 09/07/2023 8:30 AM EDT HISTORY: Postmenopausal State Z78.0 COMPARISON: 2019. TECHNIQUE: Dual-energy X-ray absorptiometry (DEXA) bone density study performed for the axial skeleton. FINDINGS: Bone mineral density AP spine L1-L4 measures 1.067 g/sq cm. T score -0.9. Normal. Lowest bone mineral density of the left femoral neck measuring 0.794 g/sq cm. T score -1.8. Osteopenia XR/XR DEXA axial skeleton IMPRESSION: Osteopenia. Moderate fracture risk Pharmacologic treatment recommendations * No uniform recommendation applies to all patients. Management plans must be individualized. * Consider initiating pharmacologic treatment in postmenopausal women and men >= 50 years of age who have the following: Primary fracture prevention: * T-score <= - 2.5 at the femoral neck, total hip, lumbar spine, 33% radius (some uncertainty with existing data) by DXA. * Low bone mass (osteopenia: T-score between - 1.0 and - 2.5) at the femoral neck or total hip by DXA with a 10-year hip fracture risk >= 3% or a 10-year major osteoporosis-related fracture risk >= 20% (i.e., clinical vertebral, hip, forearm, or proximal humerus) based on the US-adapted FRAXregistered model. Secondary fracture prevention: * Fracture of the hip or vertebra regardless of BMD [4, 5]. * Fracture of proximal humerus, pelvis, or distal forearm in persons with low bone mass (osteopenia: T-score between - 1.0 and - 2.5). The decision to treat should be individualized in persons with a fracture of the proximal humerus, pelvis, or distal forearm who do not have osteopenia or low BMD [12, 13]. Justino MS, Nash SL, Briseyda KL, Ulysses EM, Daiana KG, AJ, Ranjeet ES. The clinician's guide to prevention and treatment of osteoporosis. Osteoporos Int. 2021;33(10):3576-8925. doi: 10.1007/y51673-923-65104-s. Epub 2021Jun 26. Erratum in: Osteoporos Int. 2021Sep 25;: PMID: 33403226; PMCID: [id number]. Electronically authenticated by: SERA MARKS Date: 09/07/2023 09:14 Dictated By: Sera Marks M.D. Signed By: 09/07/23916 DD/ 3 TD/TT: Rockboard Lather:TBHRadiology, Radiologist, MD - 09/07/2023 [place] [address] XRay Report Signed Patient: KRYSTAL POWELL MR#: [id number] : 1970 Acct:[id number] Age/Sex: 53 / F ADM Date: 09/07/23 Loc: RAD Attending Dr: Dequan Myers D.O. Ordering Physician: Dequan Myers D.O. Date of Service: 09/07/23 Procedure(s): XR DEXA axial skeleton Accession Number(s): [id number] cc: Dequan Myers D.O.; Physician,Non-Staff [address] [address] [place] [id number] Patient Name: KRYSTAL POWELL MRN: [id number] date: 1970 Sex: F Assigned Patient Location: RAD Current Patient Location: RAD Accession/Order Number: [id number] Exam Date: 09/07/2023 08:30 Report Date: 09/07/2023 09:14 At the request of: DEQUAN MYERS Procedure: XR DEXA axial skeleton EXAMINATION: XR DEXA axial skeleton, 09/07/2023 8:30 AM EDT HISTORY: Postmenopausal State Z78.0 COMPARISON: 2019. TECHNIQUE: Dual-energy X-ray absorptiometry (DEXA) bone density study performed for the axial skeleton. FINDINGS: Bone mineral density AP spine L1-L4 measures 1.067 g/sq cm. T score -0.9. Normal. Lowest bone mineral density of the left femoral neck measuring 0.794 g/sq cm. T score -1.8. Osteopenia XR/XR DEXA axial skeleton IMPRESSION: Osteopenia. Moderate fracture risk Pharmacologic treatment recommendations * No uniform recommendation applies to all patients. Management plans must be individualized. * Consider initiating pharmacologic treatment in postmenopausal women and men >= 50 years of age who have the following: Primary fracture prevention: * T-score <= - 2.5 at the femoral neck, total hip, lumbar spine, 33% radius (some uncertainty with existing data) by DXA. * Low bone mass (osteopenia: T-score between - 1.0 and - 2.5) at the femoral neck or total hip by DXA with a 10-year hip fracture risk >= 3% or a 10-year major osteoporosis-related fracture risk >= 20% (i.e., clinical vertebral, hip, forearm, or proximal humerus) based on the US-adapted FRAXregistered model. Secondary fracture prevention: * Fracture of the hip or vertebra regardless of BMD [4, 5]. * Fracture of proximal humerus, pelvis, or distal forearm in persons with low bone mass (osteopenia: T-score between - 1.0 and - 2.5). The decision to treat should be individualized in persons with a fracture of the proximal humerus, pelvis, or distal forearm who do not have osteopenia or low BMD [12, 13]. Justino MS, Nash SL, Briseyda KL, Ulysses EM, Daiana KG, AJ, Ranjeet ES. The clinician's guide to prevention and treatment of osteoporosis. Osteoporos Int. 2021;33(10):6582-2821. doi: 10.1007/q69778-260-66210-z. Epub 2021Jun 26. Erratum in: Osteoporos Int. 2021Sep 25;: PMID: 88813298; PMCID: [id number]. Electronically authenticated by: SERA MARKS Date: 09/07/2023 09:14 Dictated By: Sera Marks M.D. Signed By: 09/07/23916 DD/ 3 TD/TT: Rockboard Lather: [facility] HealthcareRadiology Study observation (narrative)[facility]fieldXR DEXA AXIAL SKELETONOrdered By: Radiologist Radiology on 57-91-1263WUSA Lolay Work Phone: bi MAMMO BILATERAL SCREENING TOMOSYNTHESISon 28-14-2369AW MAMMO BILATERAL SCREENING TOMOSYNTHESISInterpreted By: Megan Lynch, STUDY: BI MAMMO BILATERAL SCREENING TOMOSYNTHESIS; 2023 10:24 am ACCESSION NUMBER(S): [id number] ORDERING CLINICIAN: INTERFACE UNSPECIFIELDPROVIDER INDICATION: Screening. Family [...] any future breast imaging appointments, please call [phone] ([phone]). MACRO: None Signed by: Megan Lynch 08/16/2023 1:25 PM Dictation workstation: [id number] [place], [place] [address]CB AUTO DIFFon 83-19-5985ZMEQ #0.0 103/ulNormal0.0-0.1Sum[facility] Health Akron CampusComment on above:Performed By: #### CBC #### [facility] [address] [address] [address] Kirill Wolfesophils/100 WBC (Bld)0.8 %Normal0.2-2.0[facility] Comment on above:Performed By: #### CBC #### [facility] [address] [address] [address] Kirill Daniel #0.1 103/ulNormal0.0-0.7The Wayne HospitalComment on above: Performed By: #### CBC #### [facility] [address] [place] [address] Dr. Kirill Waldroposinophils/100 WBC (Bld)2.3 %Normal0.9-7.0[facility] Comment on above:Performed By: #### CBC #### [facility] [address] [place] [address] Dr. Kirill Waldroprythrocyte distribution width (RBC) [Ratio]12.3 %Sjtqjl69.0-15.0 The [facility] HospitalComment on above:Performed By: #### CBC #### [facility] [address] [place] [address] Dr. Kirill MatosHematocrit (Bld) [Volume fraction]40.3 %Mhvbkb79.0-48.0The [facility] HospitalComment on above:Performed By: #### CBC #### [facility] [address] [place] [address] Dr. Kirill MatosHemoglobin (Bld) [Mass/Vol]13.6 g/oYRgcbni15.0-16.0The [facility] HospitalComment on above:Performed By: #### CBC #### [facility] [address] [place] [address] Dr. Kirill Villanueva #0.01 10e3/ulNormal0.00-0.03The [facility] HospitalComment on above:Performed By: #### CBC #### [facility] [address] [place] [address] Dr. Kirill Villanueva %0.2 %Normal0.0-0.5The [facility] Hospitalment on above: Performed By: #### CBC #### [facility] [address] [place] [address] Dr. Kirill HessMPH #1.5 103/ulNormal1.2-3.8The [facility] HospitalComment on above:Performed By: #### CBC #### [facility] [address] [place] [address] Dr. Kirill Hessmphocytes/100 WBC (Bld)28.8 %Akawgu68.5-60.0The [facility] Hospitalment on above:Performed By: #### CBC #### [facility] [address] [place] [address] Dr. Kirill ChapaUAL DIFF REQNONormalThe Wayne HospitalComment on above: Performed By: #### CBC #### [facility] [address] [place] [address] Dr. Kirill Sanchez (RBC) [Entitic mass]31.1 fvLmwhjz69.7-34.0The [facility] HospitalComment on above:Performed By: #### CBC #### [facility] [address] [place] [address] Dr. Kirill Sanchez (RBC) [Mass/Vol]33.7 g/gIXrapbt27.9-35.2The [facility] HospitalComment on above:Performed By: #### CBC #### [facility] [address] [place] [address] Dr. Kirill Sanchez (RBC) [Entitic vol]92.2 wATpxagu12.0-99.0The [facility] HospitalComment on above:Performed By: #### CBC #### [facility] [address] [place] [address] Dr. Kirill Cruz #0.4 103/ulNormal0.3-0.8The [facility] HospitalComment on above:Performed By: #### CBC #### [facility] [address] [place] [address] Dr. Kirill Verasocytes/100 WBC (Bld)6.8 %Normal1.7-12.0[facility] Comment on above:Performed By: #### CBC #### [facility] [address] [place] [address] Dr. Kirill Russo #3.2 103/ulNormal1.4-6.5The [facility] HospitalComment on above:Performed By: #### CBC #### [facility] [address] [address] [address] Kirill MatosNeutrophils/100 WBC (Bld)61.1 %Nacowf25.0-75.0The [facility] on above:Performed By: #### CBC #### [facility] [address] [place] [address] Dr. Kirill MatosPlatelet mean volume (Bld) [Entitic vol]8.7 fLCritically low 9.5-13.5The [facility] HospitalComcorewell health greenville hospital on above:Performed By: #### CBC #### [facility] [address] [place] [address] Dr. Kirill MatosPLT225 103/uzKaztgj464-568Ndt [facility] on above: Performed By: #### CBC #### [facility] [address] [place] [address] Dr. Kirill MatosRBC4.37 106/ulNormal4.20-5.40The [facility] on above:Performed By: #### CBC #### [facility] [address] [place] [address] Dr. Kirill MatosWBC5.2 103/ulNormal4.0-11.0The [facility] on above: Performed By: #### CBC #### [facility] [address] [place] [address] Dr. Kirill MatosGLYCOHEMOGLOBIN A1Con 58-86-2164PXQ RECOMMENDATIONSEE BELOWNormal The [facility] HospitalComcorewell health greenville hospital on above:Result Comment: ADA RECOMMENDED LIMIT 4.0 - 6.0 ADA THERAPEUTIC TARGET < 7.0 ACTION SUGGESTED > 7.0Performed By: #### A1C #### [facility] [address] [place] [address] Dr. Kirill MatosGlucose [Mass/Vol]82 mg/dLNormalThe [facility] on above:Performed By: #### A1C #### [facility] [address] [place] [address] Dr. Kirill MatosHbA1c (Bld) [Mass fraction]4.5 %Normal4.5-6.2[facility] CampusComment on above:Performed By: #### A1C #### [facility] [address] [place] [address] Dr. Kirill RawlsID PROFILEon 33-39-9782TYRX-HDL RATIO NORMSEE BELOWKettering Health Greene MemorialComment on above:Result Comment: 3.3 - 4.4 LOW RISK 4.4 - 7.1 AVERAGE RISK 7.1 - 11.0 MODERATE RISK >11.0 HIGH RISKPerformed By: #### BMP, TSH, LIPID #### [facility] [address] [address] [address] Kirill MatosCholesterol [Mass/Vol]183 mg/dLNormal<=200[facility] Comment on above:Performed By: #### BMP, TSH, LIPID #### [facility] [address] [place] [address] Dr. Kirill MatosCholesterol in HDL [Mass/Vol]54 mg/eZMvbgyz24-90Mxo Wayne HospitalComment on above:Performed By: #### BMP, TSH, LIPID #### [facility] [address] [address] [address] Kirlil Pageesterol in LDL [Mass/Vol]111.2 mg/dLNoLima City HospitalComment on above:Performed By: #### BMP, TSH, LIPID #### [facility] [address] [place] [address] Dr. Kirill Walton.total/Cholesterol in HDL [Mass ratio]3.4 {ratio} NormalSumma Health Akron CampusComment on above:Performed By: #### BMP, TSH, LIPID #### [facility] [address] [address] [address] Kirill WalkerL NORMAL> or = 60 mg/dl - LOW CARDIOVASCULAR RISK <40 mg/dl - HIGH CARDIOVASCULAR RISKNoLima City HospitalComment on above:Performed By: #### BMP, TSH, LIPID #### [facility] [address] [place] [address] Dr. Kirill MatosLDL CALC NORMALSEE BELOWKettering Health Greene MemorialComment on above:Result Comment: <100 mg/dl OPTIMAL 100 - 129 mg/dl NEAR OR ABOVE OPTIMAL 130 - 159 mg/dl BORDERLINE HIGH 160 - 189 mg/dl HIGH >190 mg/dl VERY HIGH Performed By: #### BMP, TSH, LIPID #### [facility] [address] [address] [address] Kirill MatosTriglyceride [Mass/Vol]89 mg/dLNormal<=150[facility] Comment on above:Performed By: #### BMP, TSH, LIPID #### [facility] [address] [address] [address] Kirill MatosVLDL CALC17.8 mg/dLKettering Health Greene MemorialComment on above: Performed By: #### BMP, TSH, LIPID #### [facility] [address] [place] [address] Dr. Kirill MatosPROF CHEM 8 (BAS METB)on 21-12-1942Ouptz gap [Moles/Vol]9.3 mmol/LNormalSumma Health Akron CampusComment on above:Performed By: #### BMP, TSH, LIPID #### [facility] [address] [address] [address] Kirill MatosCalcium [Mass/Vol]10.1 mg/dLNormal8.5-10.1[facility] Comment on above:Performed By: #### BMP, TSH, LIPID #### [facility] [address] [address] [address] Kirill MatosChloride [Moles/Vol]104 mmol/IFbmbxb81-632Ikd [facility] Comment on above:Performed By: #### BMP, TSH, LIPID #### [facility] [address] [address] [address] Kirill MatosCO2 [Moles/Vol]29.0 mmol/DYiwkpk63.0-32.0[facility] Comment on above:Performed By: #### BMP, TSH, LIPID #### [facility] [address] [address] [address] Kirill MatosCreatinine [Mass/Vol]0.89 mg/dLNormal0.55-1.02The [facility] HospitalComment on above:Performed By: #### BMP, TSH, LIPID #### [facility] [address] [address] [address] Kirill WaldropGFR-AF NORWEGIAN>60Normal>=60The [facility] HospitalComment on above:Performed By: #### BMP, TSH, LIPID #### [facility] [address] [address] [address] Kirill WaldropGFR-NON AF NORWEGIAN>60Normal>=60The [facility] HospitalComment on above:Performed By: #### BMP, TSH, LIPID #### [facility] [address] [place] [address] Dr. Kirill MatosGlucose [Mass/Vol]83 mg/sFMnetvt03-603Zwa [facility] Comment on above:Performed By: #### BMP, TSH, LIPID #### [facility] [address] [address] [address] Kirill MatosPotassium [Moles/Vol]4.3 mmol/LNormal3.5-5.1[facility] Comment on above:Performed By: #### BMP, TSH, LIPID #### [facility] [address] [place] [address] Dr. Kirill MatosSodium [Moles/Vol]138 mmol/FEkingd523-660JqpSumma Health Akron Campus Comment on above:Performed By: #### BMP, TSH, LIPID #### [facility] [address] [address] [address] Kirill MatosUrea nitrogen [Mass/Vol]17.0 mg/dLNormal7.0-18.0The [facility] HospitalComment on above:Performed By: #### BMP, TSH, LIPID #### [facility] [address] [place] [address] Dr. Kirill Goetz nitrogen/Creatinine [Mass ratio]19.1 mg/mgNormalThe [facility] HospitalComment on above:Performed By: #### BMP, TSH, LIPID #### [facility] [address] [place] [address] Dr. Kirill Dumont 97-10-7861ELF5.094 uIU/mLCritically high0.358-3.740[facility] on above:Performed By: #### BMP, TSH, LIPID #### [facility] [address] [place] [address] Dr. Kirill Hester ACOG PANEL 2: 30 to 65on 05-08-2022..NormalThe [facility] on above:Result Comment: Performed at: WBPerformed By: #### [id number] #### [facility] [address] [place] [address] Dr. Kirill Carver Gdln ACOG Czotqvf49-16HnjqnzTvmUniversity Hospitals Parma Medical Center on above:Performed By: #### [id number] #### [facility] [address] [place] [address] Dr. Kirill MatosDIAGNOSIS:CommentCleveland Clinic Fairview Hospital on above: Result Comment: NEGATIVE FOR INTRAEPITHELIAL LESION OR MALIGNANCY. CELLULAR CHANGES ASSOCIATED WITH ATROPHY ARE PRESENT. THIS SPECIMEN WAS RESCREENED PART OF OUR HOTEL SERVICES SUPERVISOR PROGRAM. Performed at: WBPerformed By: #### [id number] #### [facility] [address] [place] [address] Dr. Kirill Rodrigeuz AptimaNegativeNormalNegativeBarberton Citizens Hospital on above:Result Comment: This nucleic acid amplification test detects fourteen high-risk HPV types (16,18,31,33,35,39,45,51,52,56,58,59,66,68) without differentiation. Performed at: =GPerformed By: #### [id number] #### [facility] [address] [place] [address] Dr. Kirill MatosHPMoises Genotype ReflexCommentCleveland Clinic Fairview Hospital on above:Result Comment: Criteria not met, HPV Genotype not performed. Performed at: WBPerformed By: #### [id number] #### [facility] [address] [place] [address] Dr. Kirill MatosMethodology:CommentNoUniversity Hospitals Parma Medical Center on above: Result Comment: This liquid based ThinPrep(R) pap test was screened with the use of an image guided system. Performed at: WBPerformed By: #### [id number] #### [facility] [address] [place] [address] Dr. Kirill MatosNote:CommentCleveland Clinic Fairview Hospital on above:Result Comment: The Pap smear is a screening test designed to aid in the detection of premalignant and malignant conditions of the uterine cervix. It is not a diagnostic procedure and should not be used as the sole means of detecting cervical cancer. Both false-positive and false-negative reports do occur. . Performed at: WBPerformed By: #### [id number] #### [facility] [address] [place] [address] Dr. Kirill MatosPerformed by:CommentCleveland Clinic Fairview Hospital on above: Result Comment: Carlos Irizarry, Retail Sales Specialist (ASCP) Performed at: WBPerformed By: #### [id number] #### [facility] [address] [place] [address] Dr. Kirill MatosQC reviewed by:[facility] on above:Result Comment: Beatrice Cummings, Retail Sales Specialist (ASCP) Performed at: WBPerformed By: #### [id number] #### [facility] [address] [place] [address] Dr. Kirill MatosSpecimen adequacy:[facility] on above:Result Comment: Satisfactory for evaluation. Endocervical and/or squamous metaplastic cells (endocervical component) are present. Performed at: WBPerformed By: #### [id number] #### [facility] [address] [place] [address] Dr. Kirill FullerGITAL MAMM SCREENING W/ TOMOon 44-06-9822FQESOOT MAMM SCREENING W/ TOMOMRN: [id number] Patient Name: KRYSTAL POWELL STUDY: DIGITAL MAMM SCREENING W/ ROSELYN; 08/06/2021 2:17 pm ACCESSION NUMBER(S): [id number] ORDERING CLINICIAN: DEQUAN MYERS INDICATION: Screening. Remote [...] any future breast imaging appointments, please call [phone]). Patient letter sent SNORM Electronically signed by: YUDELKA GIPSON MD[facility] Vital Signs Date TimeVital SignValuePerforming EpflcyypuQfjjlmyw37-11-4525 11:34-0400Body mass index (BMI) [Ratio]26.71 kg/m2Lala MOREL Work Phone: [facility]Lqfhuanhok13-24-9726 11:34-0400Body ybhesh75.4 kg Lala MOREL Work Phone: [facility]Wcpxucazrp48-68-3473 11:34-0400Diastolic blood wavohxew42 mm[Hg]Lala MOREL Work Phone: [facility]Smxlvdfhrw93-61-8598 11:34-0400Systolic blood xxyrbnxf748 mm[Hg]Lala MOREL Work Phone: [facility]fieldEoezjmxnnz94-87-7496 10:10-0400Body ztjigd960 cm [facility]06-13-2024 10:10-0400Body mass index (BMI) [Ratio]25.33 kg/m2[facility]06-13-2024 10:10-0400Body bkkfvi99.86 kgCmParma Community General Hospital Encounters Encounter DateEncounter TypeCare ProviderFacilityStart: 12-26-2024 End: 93-20-2452Jqphwg flowsheetLala MOREL Work Phone: [facility] OBGYNStart: 12-26-2024 End: 27-59-9045Xmdnnj flowsCollin MOREL Work Phone: [facility] OBGYNStart: 12-26-2024 End: 56-69-0375Rnupzksfr Result EncounterLala Mccartyclem MOREL Work Phone: [facility] External Department UnsolicitedStart: 12-26-2024 End: 67-59-6032oxymlbglzxHKB MARIALUISAGovind AvailableStart: 12-26-2024 End: 09-91-3800Lwgwnht encounter procedureLala Marialuisa MOREL Work Phone: [facility] Work Phone: Start: 12-26-2024 End: 90-56-8386Yhgqzpo encounter statusLala Elam MARIA TERESA Work Phone: [facility] HealthcareStart: 12-26-2024 End: 33-44-8977Auazmknp preventive med est patient 40-64yrsAmy Marialuisa MOREL Work Phone: [facility] OBGYNComment on above:Hormone disorder (Primary Dx); Well woman exam with routine gynecological exam; Breast cancer screening by mammogram; Abnormal thyroid stimulating hormone (TSH) level; Wellness examinationStart: 08-28-2024 End: 00-61-3537Lpdaif flowsheetEmdoris Gr MD Work Phone: [facility] DERMStart: 08-28-2024 End: 56-84-8628Gmnlev flowsheetEmdoris Gr MD Work Phone: [facility]WS DERMStart: 08-28-2024 End: 46-51-2642ugsyzszjuiWIURG Glen KRISHNAINot AvailableStart: 08-28-2024 End: 08-87-0968Nzeyqw outpatient visit 15 minutesEmily Glen Gr MD Work Phone: [facility] SWS DERMComment on above:Seborrheic keratosis (Primary Dx); Melanocytic nevus of trunk; Lentigines; Capillary angioma; Birthmark of skin; Common wartStart: 09-07-2023 End: 03-60-3081Jvfricybi Result EncounterCorey Lucia DO Work Phone: [facility] External Department UnsolicitedStart: 09-07-2023 End: 47-37-5382Aldiedzaj Result EncounterCorey Lucia DO Work Phone: [facility] External Department UnsolicitedStart: 2023 End: 39-69-6133Qbynpnheej hospital [facility]All[facility] Toyi5625e [facility] Rice LakeComment on above:Encounter for screening mammogram for malignant neoplasm of breastStart: 2023 End: 43-91-7875lvrsfoukzoUHW L [facility] Centertart: 53-33-2423Rxwcufpja for general adult medical examination without abnormal findingsDR DEQUAN LUCIA .[facility] Hospitaltart: 05-21-2022 End: 56-87-5699oniwcespzsTT DEQUAN LUCIA .Facility:K5Fxqcz: 05-21-2022 End: 76-10-5528Zqmueofdg for general adult medical examination without abnormal findingsDR DEQUAN LUCIA .Facility:H3Eeypf: 04-30-2022 End: 71-43-7307crsaqyzivnBU DEQUAN LUCIA .Facility:R8Idmka: 09-13-8091tehjreewqa Dequan Jose FazioFacility:[id number] Procedures DateProcedureProcedure DetailPerforming ClinicianStart: 85-48-3149GUF,APTIMA HPV,AGE GDLNLala MOREL Work Phone: Start: 62-07-7670AU DEXA AXIAL SKELETONCorey Lucia DO Work Phone: Start: 33-11-1160ADF HEMOGLOBIN L4CQfgqr Lucia DO Work Phone: Start: 22-13-1951VxrqcwuhdlmSrokv Petitti MD Work Phone: Start: 09-42-8445Vivhqsnnjtd observation [Identifier] in Cervix by Cyto stainPearl Gr MD Work Phone: Start: 41-16-5191HzkkvmmihrpWvzoz Petitti MD Work Phone: Start: 01-41-3659MpdayscrxsaGbp MammoStart: 04-30-2022 Microscopic observation [Identifier] in Cervix by Cyto stainAlliancehealth [facility] MammoStart: 08-62-4609RjlnntyczssPxp Mammo Plan of Treatment DateCare ActivityDetailAuthorStart: 24-62-6177Fgbuzzoqa for malignant neoplasm of colonNOMS HealthcareStart: 26-44-8132Ojldzotzt for malignant neoplasm of colonMercy Health St. Joseph Warren HospitalStart: 78-52-2779Kygaqcrbk for malignant neoplasm of cervixNOMS HealthcareStart: 28-99-8859Csgcmidil for malignant neoplasm of cervixPap SmearNOMS HealthcareStart: 08-28-2025 End: 03-74-0091Zstjcfg encounter procedureNOMS SWS DERMStart: 04-30-2025 Screening for malignant neoplasm of cervixMer[facility] Start: 01-10-2025 End: 19-44-0142Mjeodlw encounter wxhngqicl18/12/2025 8:30 AM EST Office Visit KARMEN THOMPSON [address] [place] [id number] Lala Elam PA [address] [place] [address] NOMShakir BERNABEtart: 12-26-2024 End: 20-76-7416Z-peptideC-peptide Lab Routine Hormone disorder Expected: 12/26/2024 (Approximate), Expires: 12/26/2025NONJ HealthcareComment on above: Expected: 12/26/2024 (Approximate), Expires: 12/26/2025Start: 12-26-2024 End: 96-57-2886XVR W Auto Differential panel - BloodCBC auto differential Lab Routine Wellness examination Expected: 12/26/2024 (Approximate), Expires: 12/26/2025NONJ HealthcareComment on above:Expected: 12/26/2024 (Approximate), Expires: 12/26/2025Start: 12-26-2024 End: 31-85-6554Pqghcsbk freeCortisol, free Lab Routine Hormone disorder Expected: 12/26/2024 (Approximate), Expires: 12/26/2025NONJ HealthcareComment on above:Expected: 12/26/2024 (Approximate), Expires: 12/26/2025Start: 12-26-2024 End: 61-65-1256Shpexvg [Mass/volume] in Serum or PlasmaGlucose, random Lab Routine Hormone disorder Expected: 12/26/2024 (Approximate), Expires: 12/26/2025 [facility] HealthcareComment on above:Expected: 12/26/2024 (Approximate), Expires: 12/26/2025Start: 12-26-2024 End: 42-11-7955Dynvvrm, totalInsulin, total Lab Routine Hormone disorder Expected: 12/26/2024 (Approximate), Expires: 12/26/2025NOMS HealthcareComment on above:Expected: 12/26/2024 (Approximate), Expires: 12/26/2025Start: 12-26-2024 End: 70-26-5643YH Breast - bilateral ScreeningBilateral screening mammogram Imaging Routine Breast cancer screening by mammogram Expected: 12/26/2024, Expires: 02/25/2026[facility] Work Phone: comment on above:Expected: 12/26/2024, Expires: 02/25/2026Start: 12-26-2024 End: 58-64-4326Wvzxyjdtx serumSerotonin serum Lab Routine Hormone disorder Expected: 12/26/2024 (Approximate), Expires: 12/26/2025NONJ HealthcareComment on above:Expected: 12/26/2024 (Approximate), Expires: 12/26/2025Start: 12-26-2024 End: 10-56-0144GzkevkjvbhdwtExbycazvruzun Lab Routine Hormone disorder Expected: 12/26/2024 (Approximate), Expires: 12/26/2025NONJ HealthcareComment on above: Expected: 12/26/2024 (Approximate), Expires: 12/26/2025Start: 12-26-2024 End: 17-20-8180Ykbhfhwsfksgw AntibodyThyroglobulin Antibody Lab Routine Hormone disorder Expected: 12/26/2024 (Approximate), Expires: 12/26/2025[facility] Comment on above:Expected: 12/26/2024 (Approximate), Expires: 12/26/2025Start: 12-26-2024 End: 36-92-8884Ixjulhfqysn [Units/volume] in Serum or PlasmaNOChristian Hospital Comment on above:Ordered: 12/26/2024Expected: 12/26/2024 (Approximate), Expires: 12/26/2025Start: 00-44-1310QBQSX-19 Vaccine ( season)COVID-19 Vaccine ()[facility] HealthcareStart: 87-70-4206Kuatvmxwt vaccinationNOChristian HospitalStart: 50-83-0508Eltzixkas for malignant neoplasm of breastMammogramMOUNTAIN WEST MEDICAL [facility]ENTER HealthcareStart: 20-98-1609SPBKR-19 Vaccine ()COVID-19 Vaccine ()[facility] Start: 20-66-4847Toloqrzun for malignant neoplasm of breastMammogramMercy Health St. Joseph Warren HospitalStislandia: 89-98-2998Uvtbct Vaccines (1 of 2)Zoster Vaccines (1 of 2)[facility]: 94-72-3297PEX Vaccines (1 of 1 - Standard series)MMR Vaccines (1 of 1 - Standard series)[facility]: 09-59-2454YUxE/Tdap/Td Vaccines (1 - Tdap)DTaP/Tdap/Td Vaccines (1 - Tdap)[facility]: 11-96-4674Aqzejhoan for malignant neoplasm of cervixHPV/CotestUnBucyrus Community Hospital: 98-24-5647Ndoxeynyo B Vaccines (1 of 3 - 19+ 3-dose series)Hepatitis B Vaccines (1 of 3 - 19+ 3-dose series)[facility]: 1988 Diabetes mellitus screeningDiabetes ScreeningMercy Health St. [facility] Start: 66-44-5758Voyullctn C screeningHepatitis C ScreeningUK [facility]: 40-58-4982DGaW/Tdap/Td Vaccines (1 - Tdap)DTaP/Tdap/Td Vaccines (1 - Tdap)[facility]Start: 45-34-1377PSK Vaccines (1 of 1 - Standard series)MMR Vaccines (1 of 1 - Standard series)[facility]Start: 37-16-8928XSB screeningHIV ScreeningUK [facility]: 53-87-8952Veyiw panelLipid PanelUK [facility]: 73-87-1762Xdyydavfp for malignant neoplasm of colonUK [facility]: 89-52-3448Iganfk Adult PhysicalYearly Adult PhysicalUnMansfield HospitalCholesterol [Mass/volume] in Serum or PlasmaCholesterol, total Lab Routine Wellness examination Ordered: 12/26/2024[facility] HealthcareComment on above:Ordered: 12/26/2024omprehensive metabolic 2000 panel - Serum or PlasmaComprehensive metabolic panel Lab Routine Wellness examination Ordered: 12/26/2024[facility] HealthcareComment on above:Ordered: 12/26/2024 End: 58-98-9264ANG Breast - [facility]GERAL[facility] Service Area Work Phone: Comment on above:Once for 1 Occurrences starting 2023 until 08/12/20239123OBKR-yzafktoSPBQ-sesegat Lab Routine Hormone disorder Ordered: 12/26/2024[facility] HealthcareComment on above:Ordered: 12/26/2024Estradiol Estradiol Lab Routine Hormone disorder Ordered: 12/26/2024[facility] HealthcareComment on above:Ordered: 12/26/2024EstroneEstrone Lab Routine Hormone disorder Ordered: 12/26/2024[facility] HealthcareComment on above:Ordered: 12/26/2024Ferritin [Mass/volume] in Serum or PlasmaFerritin Lab Routine Hormone disorder Ordered: 12/26/2024[facility] HealthcareComment on above:Ordered: 12/26/2024Hemoglobin A1c/Hemoglobin.total in BloodHemoglobin A1c Lab Routine Abnormal thyroid stimulating hormone (TSH) level Wellness examination Ordered: 12/26/2024[facility] HealthcareComment on above:Ordered: 12/26/2024ProgesteroneProgesterone Lab Routine Hormone disorder Ordered: 12/26/2024[facility] HealthcareComment on above: Ordered: 12/26/2024Sex hormone binding globulinSex hormone binding globulin Lab Routine Hormone disorder Ordered: 12/26/2024[facility] HealthcareComment on above: Ordered: 12/26/2024T3, reverseT3, reverse Lab Routine Hormone disorder Ordered: 12/26/2024[facility] HealthcareComment on above:Ordered: 12/26/2024TESTOSTERONE, FREE TESTOSTERONE, FREE Lab Routine Hormone disorder Ordered: 12/26/2024[facility] HealthcareComment on above:Ordered: 12/26/2024Testosterone, free, total Testosterone, free, total Lab Routine Hormone disorder Ordered: 12/26/2024[facility] HealthcareComment on above:Ordered: 12/26/2024THIN PREP TIS PAP AND HR HPV DNA THIN PREP TIS PAP AND HR HPV DNA Pathology and Cytology Routine Well woman exam with routine gynecological exam Ordered: 12/26/2024[facility] HealthcareComment on above:Ordered: 12/26/2024Thyroid peroxidase antibodyThyroid peroxidase antibody Lab Routine Hormone disorder Ordered: 12/26/2024[facility] HealthcareComment on above: Ordered: 12/26/2024Thyroxine (T4) free [Mass/volume] in Serum or PlasmaT4, free Lab Routine Hormone disorder Ordered: 12/26/2024[facility] HealthcareComment on above: Ordered: 12/26/2024Triiodothyronine (T3) Free [Mass/volume] in Serum or Plasma T3, free Lab Routine Hormone disorder Ordered: 12/26/2024[facility] HealthcareComment on above:Ordered: 12/26/2024Vitamin D 1,25 dihydroxyVitamin D 1,25 dihydroxy Lab Routine Hormone disorder Ordered: 12/26/2024[facility] HealthcareComment on above: Ordered: 12/26/2024 Immunizations Immunization DateImmunizationNotesCare TogzqvsiDexqgdzi93-89-5777ujbdldjos virus vaccine, unspecified formulationPearl Gr MD Work Phone: [facility] Payers DatePayer CategoryPayerPolicy [id number] Health InsuranceMEDICAL MUTUAL Member Subscriber Plan / Payer (Effective 2023-Present) Name: Krystal Powell Relation to Subscriber: Self Name: Krystal Powell ID: Not on file Group ID: [id number] Type: Not on file Address: [place] [id number] MUTUAL OF [facility] [id number] 2023-Present [address] [place] [id number] 2.16.840.1.143338.3.5[id number] 2.16.840.1.894900.3.57[id number] 2..840.1.816336.3.57[id number] 2..840.1.051127.3.57[id number] 2..840.1.379521.3.57[id number] Social History DateTypeDetailFacilityTobacco smoking status NHISTobacco smoking consumption unknownNOMS HealthcareStart: 54-39-0624Cup assigned at birthNot on file [facility] Work Phone: Start: 09-27-2023 End: 34-84-6894Xrvyld identityNot on [facility] Work Phone: Start: 08-02-2023 End: 73-22-7784Wjluikpp to SARS-CoV-2 (event)Not sureMer[address] Joseph Warren HospitalStart: 72-17-3608Jazyszg smoking status NHISNever smoked tobaccoNOMS HealthcareStart: 41-06-2554Vuzemcj use and exposureSmokeless tobacco non-user [facility] HealthcareStart: 09-27-2023 End: 53-34-7957Rsizzoj of Social functionNOMS HealthcareStart: 02-52-7099Luq FemaleMOUNTAIN WEST MEDICAL CENTER [facility] History of Present illness Narrative 12-26-2024 Note Date & YrljZvpjYvmvjvwm33-33-0720 History of Present illness Narrative* MARIA TERESA Mojica - 12/26/2024 11:00 AM EDT Reason for Appointment: Patient ID: Krystal Powell is a 54 y.o. female who presents for [facility] Women Visit Patient presents today for Annual [...] nursing note reviewed. Exam conducted with a dry chain operator present. Vitals: Estimated body mass index is [...] them. Patient can also view results via EBDSoftt. I reinforced importance of condom use for [...] Present illness Narrative 08-28-2024 Note Date & StgfYgthZhlavbdc00-71-0328 History of Present illness Narrative* Pearl Gr [...] Right arm Examined Patient is wearing toenail azeri. Denies any dark streaks under azeri. Left arm Examined Lymphatics: Not examined Hands [...] 1 year, skin check documented in this encounterMOUNT[facility] Evaluation note Note Date & TypeNoteFacilityEvaluation note* Diagnosis Encounter for screening mammogram for malignant neoplasm of breast documented in this encounter [facility] Work Phone: Evaluation note Note Date & TypeNoteFacilityEvaluation note* Diagnosis Seborrheic keratosis- Primary Melanocytic nevus of trunk Benign neoplasm of skin of trunk, except scrotum Lentigines Capillary angioma Nevus, non-neoplastic Birthmark of skin Congenital vascular hamartomas Common wart Other specified viral warts documented in this encounter [facility] Evaluation note Note Date & TypeNoteFacilityEvaluation [...] section and content) DATE CREATED AUTHOR 11/30/2021 [facility] DATE CREATED AUTHOR AUTHOR'S ORGANIZ ATION 05/24/2022 [facility] DATE CREATED AUTHOR AUTHOR'S ORGANIZ ATION 09/19/2023 [facility] DATE CREATED AUTHOR AUTHOR'S ORGANIZ ATION 12/27/2024 [facility] EPIC Reason for Visit (unrecogniz ed section and content) SpecialtyDiagnoses / ProceduresReferred By ContactReferred To ContactRadiology Diagnoses Encounter for screening mammogram for malignant neoplasm of breast Procedures BI mammo bilateral screening tomosynthesis BI mammo bilateral screening tomosynthesis BI mammo bilateral screening tomosynthesis Lala Elam PA [address] [place] [address] [place] [address] Referral IDStatusReasonStart DateExpiration DateVisits RequestedVisits [id number] Review Perform Procedure /[id number] CheckReasonCommentsWell Women Visit Care Teams (unrecognized sec tion and content) Team MemberRelationshipSpecialtyStart DateEnd Date Dequan Myers DO [address] [facility] [address], [place] [address] PCP - General05/20/18Team MemberRelationshipSpecialtyStart DateEnd Date Lala Elam PA [address] [place] [address] [place] [address] PCP - Medical [place] [employer]09/30/1411Te MemberRelationshipSpecialty Start DateEnd Date Lala Elam PA [address] [place] [address] [facility]09/30/1411Team MemberRelationshipSpecialty Start DateEnd Date Lala Elam PA [address] [place] [address] [facility] - Medical [place] [employer]09/30/1411Team MemberRelationshipSpecialty Start DateEnd Date Lala Elam PA [address] [place] [address] [facility] - [facility] Commercial09/30/1411Te MemberRelationshipSpecialty Start DateEnd Date Lala Elam PA [address] [place] [address] [facility]09/30/1411Te MemberRelationshipSpecialty Start DateEnd Date Lala Elam PA [address] [place] [address] [facility]09/30/1411 FOR RECORDS PERTAINING TO PATIENTS WHO ARE [...] BE BASED ON THE PRIMARY CLINICAL RECORDS. [email or web address] [facility]. provides no warranty or guarantee of the accuracy or completeness of information in this document.
--- OUTSIDE RECORDS SUMMARY | 2025-01-01 07:22 | XMS_ITS | Clinical Summary ---
Author Organization [facility] Address [address] [facility] [place] [address] Care Team Providers Care Brazing Machine Setter Name Role Phone Lala Brown Unavailable Allergies [...] Problems No known active problems Encounters DateTypeDepartmentCare GivwXzyqhrwonwc44/28/2025 11:00 AM EDTProcedure Visit [facility] Blake THOMPSON [address] [place] [address] [place] [address] Lala Brown PA Hormone disorder (Primary Dx); Well woman exam with routine gynecological exam; Breast cancer screening by mammogram; Abnormal thyroid stimulating hormone (TSH) level; Wellness etsjkjwmzdb56/28/2025linisync Result Encounter [facility] External Department Unsolicited Lala Brown PA 12/26/2024amboo flowsheet [facility] Blake THOMPSON [address] [place] [address] Lala Brown PA from Last 3 Months Family History Medical HistoryRelationNameCommentsProstate cancerFatherRelationNameStatus CommentsFather Social History Tobacco UseTypesPacks/DayYears UsedDateSmoking Tobacco: NeverSmokeless Tobacco: Never Tobacco Cessation:Counseling Given: Not Answered CommentsUnknownSex and Gender InformationValueDate RecordedSex Assigned at BirthNot on fileLegal MflZgtwyn62/15/2023 10:08 PM EDTGender IdentityNot on fileSexual OrientationNot on file Last Filed Vital Signs Vital SignReadingTime TakenCommentsBlood Sbrrbmom038/7010 11:34 AM EDT Pulse--Temperature--Respiratory Rate--Oxygen Saturation--Inhaled Oxygen Concentration--Jhcplx62.4 kg (150 lb 12.8 oz)12/26/2024 11:34 AM CJMGevbfe009 cm (5' 3 )07/20/2023 9:11 AM EDTBody Mass Index26.71007/20/2023 9:11 AM EDT Plan of Treatment DateTypeDepartmentCare Team (Latest Contact Info)Okopqikshjz86/12/2025 8:30 AM ESTOffice Visit KARMEN THOMPSON [address] [facility] [place] [phone] Lala Brown PA [address] [facility] [address] [place], [place] [address] 08/28/2025 9:30 AM EDTOffice Visit [facility] [place] [facility] [address] [place] [address] Pearl Little MD [address] [place] [address] Health MaintenanceDue DateLast DoneCommentsCT Hkghztgtsdit18/14/1969FIT-DNA 1968FIT1968FOBT1968 5534Hoccfaiwgfwdr42/14/1969MMR Vaccines (1 of 1 - Standard series)1969DTaP/Tdap/Td Vaccines (1 - Tdap)08/13/1975Hepatitis B Vaccines (1 of 3 - 19+ 3-dose series)08/13/19872760Pudotmsug32/13/202506/, 08/06/2021, 08/06/2021, Additional history existsCOVID-19 Vaccine ( season)510/, 05/16/2020, 04/25/2020ap Smear07/19/2026 07/20/2023, 04/30/2022ervical Cancer Wyotdlfmw78/02/2028HPV/Xypjhi6105/01/2027 Bxzdtsudnkt17/09/203305/10/2022, 06/22/2022, 06/22/2022, Additional history existsColorectal Cancer Njqyxlrty37/09/2033Influenza NuvmdrqUxdahqaxg37/20/2025, 12/22/2022, 12/12/2021, Additional history existsHIB VaccinesAged OutNo [...] to complete this topic Procedures Procedure NamePriorityDate/TimeAssociated DiagnosisCommentsIGP,APTIMA HPV,AGE FLMFWmpzhem19/28/2025 11:27 AM EDT PAP JTBIXWmbeqxk87/21/2024 12:00 AM EDTfrom Last 3 Months or Most Recently Relevant to Health Maintenance Results * IGP,APTIMA HPV,AGE GDLN (12/26/2024 11:27 AM EDT)ComponentValueRef RangeTest MethodAnalysis TimePerformed AtPathologist SignatureAGE GDLN ACOG TESTINGNote. TBHComment: ?? TESTS ? RESULT ??FLAG ??UNITS ?REF RANGE ??LAB ?? Clinician Provided Cytology Information ?? Source.............Cervix;Endocervix ?? No. of containers..01 ThinPrep Vial Age Algo ACOG Anny... ??30-65 ? 01 ?FLAG LEGEND: ?L-Low Normal,H-High Normal,LL-Alert Low,HH-Alert High <-Panic Low,>-Panic High,A-Abnormal,AA-Critical Abnormal Performed at: 01 =G ?[facility] [place] ?? [address] [place] ??[address] ?? Madeline Tuttle MD, IGP, APTIMA HPV, RFX 16/18,45Note.TBHComment: ?? TESTS ? RESULT ??FLAG ??UNITS ?REF RANGE ??LAB DIAGNOSIS: ?02 ?? NEGATIVE FOR INTRAEPITHELIAL LESION OR MALIGNANCY. ?? CELLULAR CHANGES ASSOCIATED WITH ATROPHY ARE PRESENT. Specimen adequacy: ?02 ?? Satisfactory for evaluation. ??Endocervical and/or squamous metaplastic ?? cells (endocervical component) are present. Performed by: ? 02 ?? Carlos Irizarry, Shared Services And Outsourcing Manager (ASCP) . ? 02 Note: ? Note ?02 ?? The Pap smear is a screening test designed to aid in the ?? detection of premalignant and malignant conditions of the ?? uterine cervix. ??It is not a diagnostic procedure and ?? should not be used as the sole means of detecting cervical ?? cancer. ??Both false-positive and false-negative reports do ?? occur. Test Methodology: ? Note ?02 ?? This liquid based ThinPrep(R) pap test was interpreted ?? using the [employer](R) Genius(TM) Cervical Algorithm whole ?? slide imaging system. HPV Genotype Reflex ?? Note ?02 ?? Criteria not met, HPV Genotype not performed. ?FLAG LEGEND: ?L-Low Normal,H-High Normal,LL-Alert Low,HH-Alert High <-Panic Low,>-Panic High,A-Abnormal,AA-Critical Abnormal Performed at: 02 WB ?[facility] ?? [address] [place], [place] ??[address] ?? Madeline Tuttle MD, HPV APTIMANegativeNegativeTBHComment: This nucleic acid amplification test detects fourteen high- risk HPV types (16,18,31,33,35,39,45,51,52,56,58,59,66,68) without differentiation. Performed at: ??=G - [facility] ??[id number] Reservations Agent: Madeline Tuttle MD, Phone: ??[phone] Performed at: ?? - [address] ??[id number] Reservations Agent: Madeline Tuttle MD, Phone: ??[phone] Specimen (Source)Anatomical Location / LateralityCollection Method / Volume Collection TimeReceived Time12/26/2024 11:27 AM EDT1 8:37 PM EDT Narrative CLINISYNC - 12/29/2024 2:09 PM EDT BRUSH-SPATULA CERVIX ENDOCERVIX Authorizing ProviderResult TypeResult StatusAmy [facility] BLOOD ORDERABLES Final ResultPerforming OrganizationAddressCity/State/ZIP CodePhone Number [facility] * Pap Smear (07/20/2023 12:00 AM EDT)Specimen (Source)Anatomical Location / LateralityCollection Method / VolumeCollection TimeReceived TimeSwabCervical swab / Unknown Narrative Authorizing ProviderResult TypeResult StatusFazio Nurse [facility] Ob[facility] CYTOLOGY ORDERABLESFinal ResultPerforming OrganizationAddressCity/State/ZIP CodePhone Number EXTERNAL LAB from Last 3 Months or Most Recently Relevant to Health Maintenance Insurance Care Teams Team MemberRelationshipSpecialtyStart DateEnd Date Lala Brown PA [address] [place] [address] [place] [address] PCP - Medical [place] [employer]09/30/1411
--- OUTSIDE RECORDS SUMMARY | 2025-01-01 07:23 | XMS_ITS | Clinical Summary ---
Author Organization [facility] Address [address] [place], [place] [address] Care Team Providers Care Waiter/Waitress Informal Name Role Phone Simeon Moreno Primary Care Provider Allergies No known active allergies Medications No known medications Active Problems ProblemNoted DateDiagnosed DateBenign neoplasm of skin, site unspecified 10/25/2008Hemangioma of skin and subcutaneous vjgbap8106/27/2008 Social History Tobacco UseTypesPacks/DayYears UsedDateSmoking Tobacco: NeverAlcohol UseStandard Drinks/WeekCommentsNot Asked0 (1 standard drink = 0.6 oz pure alcohol) CommentsNoSex and Gender InformationValueDate RecordedSex Assigned at BirthNot on fileLegal IitFanheu56/02/2012 8:19 AM ESTGender IdentityNot on fileSexual OrientationNot on file Plan of Treatment Health MaintenanceDue DateLast DoneCommentsAnxiety Cgnugsdaj77/14/1987Depression Rjgmyqwcc10/14/1987HIV Hhzoehwni16/14/1987Hepatitis C Abkdxgngy59/14/1987 DTaP,Tdap,Td Vaccine (1 - Tdap)08/13/1987Hepatitis B Vaccine (1 of 3 - 19+ 3- dose series)08/13/1987Cervical Cancer Nkbxkisfl50/14/1990Mammogram Screening 2008CT Hsysyhhyivew54/14/2014Cologuard (FIT-DNA)2013Colonoscopy 2013Colorectal Cancer Mycsovmwn74/14/2014Diabetes Tpcpvrgbr61/14/2014Fecal Occult Blood2013Lipid Eoksboxil10/14/9738Tetqbwcqcssbg55/14/2014 Pneumococcal Vaccine: 50+ (1 of 1 - PCV)2018Shingrix Vaccine (1 of 2) 2018Covid-19 Vaccine (2024-26 season)2024Influenza Vaccine (#1) 2024 Insurance Care Teams Team MemberRelationshipSpecialtyStart DateEnd Date Simeon Moreno [address] [place] [address] PCP - General06/27/08
--- OUTSIDE RECORDS SUMMARY | 2025-01-01 07:23 | XMS_ITS | Clinical Summary ---
Author Organization [facility] Address [address] [facility], [address] [place] [address] Care Team Providers Care Press And Blow Machine Tender Name Role Phone Unavailable Primary Care Provider [...] InformationValueDate RecordedSex Assigned at BirthNot on fileLegal EexQpbtak57/19/2016 2:06 PM EDTGender IdentityNot on fileSexual OrientationNot on file Last Filed Vital Signs Vital SignReadingTime TakenCommentsBlood Lehdqops416/7310 1:10 PM EDT Gvmeo572812/20/2015 1:10 PM HVUHpjiqjwdgzv67.8 ??C (98.2 ??F)12/20/2015 1:10 PM EDTRespiratory Bkdp2366 1:10 PM EDTOxygen Tchdpabmjq98%12/20/2015 1:10 PM EDTInhaled Oxygen Concentration--Bkjxuv19.5 kg (140 lb)12/20/2015 8:53 AM EDT Svrxoe832 cm (5' 3 )12/20/2015 8:53 AM EDTBody Mass Index24.81 8:53 AM EDT Plan of Treatment [place] [address]
--- OUTSIDE RECORDS SUMMARY | 2025-01-01 07:23 | XMS_ITS | Patient Health Record ---
Author Organization [facility] Address [address] [place] [address] Care Team Providers Care Pumping Station Engineer Name Role Phone Can Sam [phone] Reason For Referral No Information Social History Tobacco Use: Social History Observation Description Date Details (start date - stop date) Never Smoker NA - NA Smoking History Question Answer Notes Smoking Status NonSmoker Problems Problem Type SNOMED Code ICD Code Onset Dates Problem Status W/U Status Risk Notes Problem 61461911 Closed displaced fracture of fifth metatarsal bone of left foot, initial encounter (S92.352A) OtzgjwtojnzzowkGdudnci74459063Ckoxhh displaced fracture of fourth metatarsal bone of left foot, initial encounter (S92.342A)XfruscbydfygvbpQroayow35254365 Closed displaced fracture of fourth metatarsal bone of left foot with routine healing, subsequent encounter (S92.342D)AbsgorcbwkbjbwsIqtuiza57181122Euqoeq displaced fracture of fifth metatarsal bone of left foot with routine healing, subsequent encounter (S92.352D)Vmalrnqnq[id number] post- operative pain (G89.18)Activeconfirmed Plan Of Treatment No Information Insurance Providers Payer Name Payer Address Payer Phone Subscriber Number Group Number Insured Name Patient Relationship to Insured Coverage Start Date Coverage End Date [facility] [address] [place] [address] [id number] Krystal Gomez Self - patient is the insured Medical (General) History Medical History History ICD Code Do you have a pacemaker or A ICD(automatic internal cardiac defibrillator)? No Latex Allergy NoDrug Allergies: NoBariatric Surgery: NoSurgical History Surgery Date(Month/Year) broke wrist 12/15
--- OUTSIDE RECORDS SUMMARY | 2025-01-01 07:23 | XMS_ITS | Encounter Summary ---
Author Organization [facility] Address [address] [place] [address] Care Team Providers Care Paralegal Supervisor Name Role Phone Lala Brown Unavailable Encounter Details DateTypeDepartmentCare Team (Latest Contact Info)Kvqgupwwixj52/28/2025amboo flowsheet NOMShakir THOMPSON [address] [facility] [place] [address] Lala Brown PA [address] [facility] [address] [facility] [address] [place], [facility] Social History Tobacco UseTypesPacks/DayYears UsedDateSmoking Tobacco: NeverSmokeless Tobacco: NeverCommentsUnknownSex and Gender InformationValueDate RecordedSex Assigned at BirthNot on fileLegal NcpQwhiex48/15/2023 10:08 PM EDTGender IdentityNot on fileSexual OrientationNot on filedocumented as of this encounter Plan of Treatment DateTypeDepartharbor oaks hospitalCare Team (Latest Contact Info)Rbqyhdehwpp57/12/2025 8:30 AM ESTOffice Visit [facility] Blake THOMPSON [address] [facility] [place] [address] Lala Brown PA [address] [facility] [place] [address] 08/28/2025 9:30 AM EDTOffice Visit [facility] [place] [facility] [address] [place] [address] Pearl Little MD [address] [place] [address] [place] [address] documented as of this encounter Visit Diagnoses Not on filedocumented in this encounter Care Teams Team MemberRelationshipSpecialtyStart DateEnd Date Lala Brown PA [address] [facility] [place] [address] PCP - Medical [place] [employer]09/30/1411documented as of this encounter
--- OUTSIDE RECORDS SUMMARY | 2025-01-01 07:23 | XMS_ITS | Encounter Summary ---
Author Organization [facility] Address [address] [place] [address] Care Team Providers Care Residential Therapist Name Role Phone Lala Brown Unavailable Encounter Details DateTypeDepartmentCare Team (Latest Contact Info)Hhvmfofeitc23/09/2024Clinisync Result Encounter [facility] External Department Unsolicited Dequan Myers DO [address] [facility] [address] [place] [id number] Social History Tobacco UseTypesPacks/DayYears UsedDateSmoking Tobacco: Never Assessed CommentsUnknownSex and Gender InformationValueDate RecordedSex Assigned at Not on fileLegal CooXfvpmc57/15/2023 10:08 PM EDTGender IdentityNot on file Sexual OrientationNot on filedocumented as of this encounter Plan of Treatment DateTypeDepartmentCare Team (Latest Contact Info)Nkqksouxzyf27/12/2025 8:30 AM ESTOffice Visit NOMShakir Lozano OBMIREYA [address] [facility] [place] [address] Lala Brown PA [address] [facility] [address] [place], [facility]11 08/28/2025 9:30 AM EDTOffice Visit [facility] [place] [facility] [address] [place] [address] Pearl Little MD [address] [place] [address] documented as of this encounter Procedures Procedure NamePriorityDate/TimeAssociated DiagnosisCommentsXR DEXA AXIAL VOKSXGBR86/09/2024 9:14 AM EDT MLR HEMOGLOBIN X3RQleghfn74/09/2024 8:43 AM EDT documented in this encounter Results * XR DEXA AXIAL SKELETON (09/07/2023 9:14 AM EDT)Anatomical RegionLaterality ModalityOtherSpecimen (Source)Anatomical Location / LateralityCollection Method / VolumeCollection TimeReceived Time09/07/2023 9:14 AM EDT Narrative 09/07/2023 9:17 AM EDT [facility] ?[address] ? [place] [id number] ?XRay Report ? Signed ? Patient: MICHAEL POWELL ?MR#: [id number] ?? : 1970 ?Acct:[id number] ?? Age/Sex: 53 / F ?ADM Date: 09/07/23 ?? Loc: RAD ? Attending Dr: Dequan Myers D.O. ? Ordering Physician: Dequan Myers D.O. ?? Date of Service: 09/07/23 ?? Procedure(s): XR DEXA axial skeleton ?? Accession Number(s): [id number] ? cc: Dequan Myers D.O.; Physician,Non-Staff M.D. ? [facility] ? [facility]. [facility] ? [place] [address] ? Patient Name: ?? MICHAEL Glen POWELL ? MRN: [id number] ? date: 1970 ?Sex: F ?? Assigned Patient Location: RAD ?? Current Patient Location: RAD ?? Accession/Order Number: [id number] ?? Exam Date: 09/07/2023 ??08:30 ?Report Date: 09/07/2023 ??09:14 ? At the request of: ?? DEQUAN ??LUCIA ? Procedure: ??XR DEXA axial skeleton ? EXAMINATION: XR DEXA axial skeleton, 09/07/2023 8:30 AM EDT ? HISTORY: Postmenopausal State Z78.0 ? COMPARISON: 2019. ? TECHNIQUE: Dual-energy X-ray absorptiometry (DEXA) bone density study ?? performed ?? for the axial skeleton. ? FINDINGS: ? Bone mineral density AP spine L1-L4 measures 1.067 g/sq cm. T score -0.9. ?? Normal. ? Lowest bone mineral density of the left femoral neck measuring 0.794 g/sq cm. ?? T ?? score -1.8. Osteopenia ? XR/XR DEXA axial skeleton ?? IMPRESSION: ? Osteopenia. Moderate fracture risk ? Pharmacologic treatment recommendations ?? * No uniform recommendation applies to all patients. Management plans must be ?? individualized. ?? * Consider initiating pharmacologic treatment in postmenopausal women and men ?? >= 50 years of age who have the following: Primary fracture prevention: ?? * T-score <= - 2.5 at the femoral neck, total hip, lumbar spine, 33% radius (some uncertainty with existing data) by DXA. ?? * Low bone mass (osteopenia: T-score between - 1.0 and - 2.5) at the femoral ?? neck or total hip by DXA with a 10-year hip fracture risk >= 3% or a 10-year major osteoporosis-related fracture risk >= 20% (i.e., clinical vertebral, hip, ?? forearm, or proximal humerus) based on the US-adapted FRAXregistered model. ?? Secondary fracture prevention: ?? * Fracture of the hip or vertebra regardless of BMD [4, 5]. ?? * Fracture of proximal humerus, pelvis, or distal forearm in persons with low ?? bone mass (osteopenia: T-score between - 1.0 and - 2.5). The decision to treat ? should be individualized in persons with a fracture of the proximal humerus, ?? pelvis, or distal forearm who do not have osteopenia or low BMD [12, 13]. ?? Justino MS, Nash SL, Briseyda KL, Ulysses EM, Daiana KG, AJ, Ranjeet ?? ES. ?? The clinician's guide to prevention and treatment of osteoporosis. Osteoporos ?? Int. 2021;33(10):5499-5820. doi: 10.1007/q19711-822-64110-q. Epub 2021 Apr ? 28. Erratum in: Osteoporos Int. 2021Sep 25;: PMID: 05434628; PMCID: ?? [id number]. ? Electronically authenticated by: SERA ??KENDRICK ?? Date: 09/07/2023 ??09:14 ? Dictated By: ?Sera Marks M.D. ? Signed By: ?09/07/23916 ? DD/ 3 ? TD/TT: ? Contact Lens Blocker And Cutter: Procedure Note Radiology, Radiologist, - 09/07/2023 [place] [address] XRay Report Signed Patient: MICHAEL POWELL AMR#: [id number] : 1970Acct:[id number] Age/Sex: 53 / FADM Date: 09/07/23 Loc: RO Attending Dr: Dequan Myers D.O. Ordering Physician: Dequan Myers D.O. Date of Service: 09/07/23 Procedure(s): XR DEXA axial skeleton Accession Number(s): [id number] cc: Dequan Myers D.O.; Physician,Non-Staff M.D. The [place] [id number] Patient Name: MICHAEL POWELL MRN: [id number] date: 1970 Sex: F Assigned Patient Location: [facility] Current Patient Location: [facility] Accession/Order Number: [id number] Exam Date: 09/07/2023 08:30 Report Date: 09/07/2023 [...] of the left femoral neck measuring 0.794 g/sqcm. T score -1.8. Osteopenia XR/XR DEXA axial skeleton IMPRESSION: Osteopenia. Moderate fracture risk Pharmacologic treatment recommendations * No uniform recommendation applies to all patients. Management plans mustbe individualized. * Consider initiating pharmacologic treatment in postmenopausal women andmen >= 50 years of age who have the following: Primary fracture prevention: * T-score <= - 2.5 at the femoral neck, total hip, lumbar spine, 33%radius (some uncertainty with existing data) by DXA. * Low bone mass (osteopenia: T-score between - 1.0 and - 2.5) at thefemoral neck or total hip by DXA with a 10-year hip fracture risk >= 3% or k48-nbwo major osteoporosis-related fracture risk >= 20% (i.e., clinical vertebral, hip, forearm, or proximal humerus) based on the US-adapted FRAXregisteredmodel. Secondary fracture prevention: * Fracture of the hip or vertebra regardless of BMD [4, 5]. * Fracture of proximal humerus, pelvis, or distal forearm in persons withlow bone mass (osteopenia: T-score between - 1.0 and - 2.5). The decision totreat should be individualized in persons with a fracture of the proximalhumerus, pelvis, or distal forearm who do not have osteopenia or low BMD [12, 13]. Justino MS, Nash SL, Briseyda KL, Ulysses EM, Daiana KG, AJ,Ranjeet ES. The clinician's guide to prevention and treatment of osteoporosis.Osteoporos Int. 2021;33(10):6891-8630. doi: 10.1007/i41547-831-29849-o. Epub . Erratum in: Osteoporos Int. 2021Sep 25;: PMID: 74768339; PMCID: [id number]. Electronically authenticated by: SERA MARKS Date: 09/07/2023 09:14 Dictated By: Sera Marks M.D. Signed By:09/07/23916 DD/ 3 TD/TT: Contact Lens Blocker And Cutter: Authorizing ProviderResult TypeResult StatusCorey Lucia DOCLINISYNC IMAGINGFinal Result * MLR HEMOGLOBIN A1C (09/07/2023 8:43 AM EDT)ComponentValueRef RangeTest Method Analysis TimePerformed AtPathologist SignatureGLYCOHEMOGLOBIN A1C5.04.5 - 6.2 %TBHComment: ADA RECOMMENDED LIMIT 4.0 - 6.0 ADA THERAPEUTIC TARGET < 7.0 ACTION SUGGESTED > 7.0 ESTIMATED AVERAGE DXJLMEM16jn/dLTBHSpecimen (Source)Anatomical Location / LateralityCollection Method / VolumeCollection TimeReceived Time09/07/2023 8:43 AM EDT09/07/2023 8:45 AM EDT Narrative [facility] - 09/07/2023 10:13 AM EDT Authorizing ProviderResult TypeResult StatusCorey Lucia DOCLINISYNCFinal Result Performing OrganizationAddressCity/State/ZIP CodePhone Number CLINISYNC TB documented in this encounter Visit Diagnoses Not on filedocumented in this encounter Care Teams Team MemberRelationshipSpecialtyStart DateEnd Date Lala Brown PA [address] [place] [address] [place] [address] PCP - Medical [place] [employer]09/30/1411documented as of this encounter
--- OUTSIDE RECORDS SUMMARY | 2025-01-01 07:23 | XMS_ITS | Clinical Summary ---
Author Organization [facility] Address [address] [place] [address] Phone Care Team Providers Care Spot Cleaner Name Role Phone Wellington Myers DO Primary Care Provider [phone] Family History Medical HistoryRelationNameCommentsBreast cancerMaternal GrandmotherRelationName StatusCommentsMaternal Grandmother Social History Tobacco UseTypesPacks/DayYears UsedDateSmoking Tobacco: Never Assessed CommentsNoSex and Gender InformationValueDate RecordedSex Assigned at BirthNot on fileLegal HosGamplz22/25/2022 2:35 PM ESTGender IdentityNot on fileSexual OrientationNot on file Last Filed Vital Signs Vital SignReadingTime TakenCommentsBlood Pressure--Pulse--Temperature-- Respiratory Rate--Oxygen Saturation--Inhaled Oxygen Concentration--Hrwwfq19.9 kg (143 lb)2023 10:10 AM YUBJykvax821 cm (5' 3 )2023 10:10 AM EDTBody Mass Index25.33008/12/2023 10:10 AM EDT Plan of Treatment Health MaintenanceDue DateLast DoneCommentsCT Lpcvzvygzprb58/14/1969FIT-DNA (Cologuard)1968FIT1968HIV Gsszdvxfa95/14/1969Lipid Panel1968 Bdzdxidnobrjh73/14/1969MMR Vaccines (1 of 1 - Standard series)1969Diabetes Gnbtfcijh38/14/1987Hepatitis C Mkkzctedp71/14/1987Hepatitis B Vaccines (1 of 3 - 19+ 3-dose series)08/13/1987HPV/Fmpvlq2108/12/1989DTaP/Tdap/Td Vaccines (1 - Tdap) 1990Pneumococcal Vaccine (1 of 1 - PCV)2018Zoster Vaccines (1 of 2) 2018Yearly Adult Deeugeli89/22//8166Egldwdboe86/13/2025 2023, 08/06/2021, 08/06/2021, Additional history existsInfluenza Vaccine (#1)/, 12/12/2021, 12/26/2020, Additional history exists COVID-19 Vaccine ( season), 12/12/2020, 05/16/2020, Additional history existsCervical Cancer Jcngpdlbi73/02/2026Pap Smear/2848Elklvwrlodq94/24//olorectal Cancer Suuloyqcj44/24/2033HIB VaccinesAged OutNo longer eligible based on patient's [...] Procedures Procedure NamePriorityDate/TimeAssociated DiagnosisCommentsBI MAMMO BILATERAL SCREENING BABWBPUBBWUQHKfzoidy50/13/2024 10:24 AM EDT Encounter for screening mammogram [...] any future breast imaging appointments, please call [phone] ([phone]). ? MACRO: None ?? Signed by: Megan Lynch 08/16/2023 1:25 PM Dictation workstation: ?? [id number] Narrative 08/16/2023 1:25 PM EDT Interpreted By: Megan Lynch, STUDY: BI MAMMO BILATERAL SCREENING TOMOSYNTHESIS; ??2023 10:24 am ?? ACCESSION NUMBER(S): [id number] ?? ORDERING CLINICIAN: INTERFACE UNSPECIFIELDPROVIDER ?? INDICATION: [...] SCREENING TOMOSYNTHESIS; 2023 10:24 am ACCESSION NUMBER(S): [id number] ORDERING CLINICIAN: INTERFACE UNSPECIFIELDPROVIDER INDICATION: Screening. Family [...] any future breast imaging appointments, please call [phone] ([phone]). MACRO: None Signed by: Megan Lynch 08/16/2023 1:25 PM Dictation workstation: [id number] Authorizing ProviderResult TypeResult StatusAmy Young Brown PAIMG BI PROCEDURESFinal Result from Last 3 Months or Most Recently Relevant to Health Maintenance Insurance [address] [place], [place] [id number] Care Teams Team MemberRelationshipSpecialtyStart DateEnd Date Wellington Myers DO [address] [facility] [address], [place] [id number] [facility] - General05/20/18
--- OUTSIDE RECORDS SUMMARY | 2025-01-01 07:23 | XMS_ITS | Clinical Summary ---
Author Organization byUs [facility] tem Address [id number] [address] [place] [address] Care Team Providers Care Ring Cutter Lathe Operator Name Role Phone LuciaWellington peters Primary Care Provider [phone] Allergies No known active allergies Medications No known medications Active Problems No known active problems Family History Medical HistoryRelationNameCommentsNo Known ProblemsFatherNo Known Problems MotherRelationNameStatusCommentsFatherAliveMotherAlive Social History Tobacco UseTypesPacks/DayYears UsedDateSmoking Tobacco: NeverSmokeless Tobacco: Never Tobacco Cessation:Counseling Given: Not Answered Alcohol UseStandard Drinks/WeekCommentsYes0 (1 standard drink = 0.6 oz pure alcohol)rarelyChildcareAnswerDate PqhvjdbcYcgfzqyffDukeuty03/12/2019Employment AnswerDate SlmqmqopGfbptulmniJlldorf77/12/2019Hunger ScreeningAnswerDate RecordedWithin the past 12 months we worried whether our food would run out before we got money to buy more.Never True03/19/2022Within the past 12 months the food we bought just didn't last and we didn't have money to get more.Never True3Purpose - LifeAnswerDate RecordedPurpose and direction in life Lrhkggl70/11/2021CommentsNoSex and Gender InformationValueDate Recorded Sex Assigned at BirthNot on fileLegal ZmlCinahc59/06/2015 12:11 PM EDTGender IdentityNot on fileSexual OrientationNot on file Last Filed Vital Signs Vital SignReadingTime TakenCommentsBlood Tlpucoag806/7004/ 8:32 AM EDT Etinv265006/22/2022 8:42 AM MACCdnxovbnjtt90.2 ??C (97.1 ??F)06/22/2022 6:48 AM EDTRespiratory Xirt579506/22/2022 8:42 AM EDTOxygen Tgxqmtmwwo36%06/22/2022 8:42 AM EDTInhaled Oxygen Concentration--Hgafhc12.5 kg (140 lb)06/22/2022 6:48 AM EDT Rnpoed790 cm (5' 3 )06/22/2022 6:48 AM EDTBody Mass Index24.8006/22/2022 6:48 AM EDT Plan of Treatment Health MaintenanceDue DateLast DoneCommentsDepression Gtpkctrhh41/14/1981Tobacco Vmtxvswuh38/14/1981DTaP,Tdap and Td Vaccines (1 - Tdap)08/13/1987Pap Smear 1989Zoster (Shingles) Vaccine (1 of 2)2018Adult BMI Screening OVID-19 Vaccine ( season)51, 12/12/2020, 05/16/2020, Additional history existsInfluenza Tnxrtmq2010/30/2024 12/12/2021, 12/26/2020, 12/13/2019, Additional history existsColonoscopy , 06/22/2022 Medical Devices Not on file Procedures Procedure NamePriorityDate/TimeAssociated DiagnosisCommentsPROVATION COLONOSCOPY Lpiwxod0606/22/2022 6:42 AM EDT from Last 3 Months [...]
--- OUTSIDE RECORDS SUMMARY | 2025-01-01 07:23 | XMS_ITS | Encounter Summary ---
Author Organization [facility] Address [address] [place] [address] Care Team Providers Care Bobbin Sorter Name Role Phone Lala Brown Unavailable Encounter Details DateTypeDepartmentCare Team (Latest Contact Info)Zcdbrqafggp32/28/2025linisync Result Encounter [facility] Unsolicited Lala Brown PA [address] [place] [id number] Social History Tobacco UseTypesPacks/DayYears UsedDateSmoking Tobacco: NeverSmokeless Tobacco: NeverCommentsUnknownSex and Gender InformationValueDate RecordedSex Assigned at BirthNot on fileLegal DxcBgilel13/15/2023 10:08 PM EDTGender IdentityNot on fileSexual OrientationNot on filedocumented as of this encounter Plan of Treatment DateTypeDepartmentCare Team (Latest Contact Info)Cegjjkjcqfi43/12/2025 8:30 AM ESTOffice Visit [facility] [address] [place] [phone] Lala Brown PA [address] [place], [facility] 08/28/2025 9:30 AM EDTOffice Visit [facility] [address] [place] [phone] Pearl Little MD [address] [place], [place] [phone] documented as of this encounter Procedures Procedure NamePriorityDate/TimeAssociated DiagnosisCommentsIGP,APTIMA HPV,AGE SNREOnryjza07/28/2025 11:27 AM EDT documented in this encounter Results * IGP,APTIMA HPV,AGE GDLN (12/26/2024 11:27 AM EDT)ComponentValueRef RangeTest MethodAnalysis TimePerformed AtPathologist SignatureAGE GDLN ACOG TESTINGNote. TBHComment: ?? TESTS ? RESULT ??FLAG ??UNITS ?REF RANGE ??LAB ?? Clinician Provided Cytology Information ?? Source.............Cervix;Endocervix ?? No. of containers..01 ThinPrep Vial Age Algo ACOG Anny... ??30-65 ? 01 ?FLAG LEGEND: ?L-Low Normal,H-High Normal,LL-Alert Low,HH-Alert High <-Panic Low,>-Panic High,A-Abnormal,AA-Critical Abnormal Performed at: 01 =G ?[facility] ?? [address] [place] ??[phone] ?? Madeline Tuttle MD, IGP, APTIMA HPV, RFX 16/18,45Note.TBHComment: ?? TESTS ? RESULT ??FLAG ??UNITS ?REF RANGE ??LAB DIAGNOSIS: ?02 ?? NEGATIVE FOR INTRAEPITHELIAL LESION OR MALIGNANCY. ?? CELLULAR CHANGES ASSOCIATED WITH ATROPHY ARE PRESENT. Specimen adequacy: ?02 ?? Satisfactory for evaluation. ??Endocervical and/or squamous metaplastic ?? cells (endocervical component) are present. Performed by: ? 02 ?? Carlos Irizarry, Manager Front (ASCP) . ? 02 Note: ? Note [...] pap test was interpreted ?? using the [employer](R) [employer](TM) Cervical Algorithm whole ?? slide imaging system. HPV Genotype Reflex ?? Note ?02 ?? Criteria not met, HPV Genotype not performed. ?FLAG LEGEND: ?L-Low Normal,H-High Normal,LL-Alert Low,HH-Alert High <-Panic Low,>-Panic High,A-Abnormal,AA-Critical Abnormal Performed at: 02 WB [facility] ?? [address] [place], [place] ??[address] ?? Madeline Tuttle MD, HPV APTIMANegativeNegativeTBHComment: This nucleic acid amplification test detects fourteen high- risk HPV types (16,18,31,33,35,39,45,51,52,56,58,59,66,68) without differentiation. Performed at: ??=G - [facility] ??[id number] Trash Collector: Madeline Tuttle MD, Phone: ??[phone] Performed at: ??WB - [facility], [place] ??[id number] Trash Collector: Madeline Tuttle MD, Phone: ??[phone] Specimen (Source)Anatomical Location / LateralityCollection Method / Volume Collection TimeReceived Time12/26/2024 11:27 AM EDT1 8:37 PM EDT Narrative [facility] - 12/29/2024 2:09 PM EDT BRUSH-SPATULA CERVIX ENDOCERVIX Authorizing ProviderResult TypeResult StatusAmy [facility] BLOOD ORDERABLES Final ResultPerforming OrganizationAddressCity/State/ZIP CodePhone Number [facility] documented in this encounter Visit Diagnoses Not on filedocumented in this encounter Care Teams Team MemberRelationshipSpecialtyStart DateEnd Date Lala Brown PA [address] [place] [address] PCP - Medical [employer]09/30/1411documented as of this encounter
[2025-01-01 08:00] LABS: Hematocrit 41.3 % (36.0-48.0); Hemoglobin 14.2 g/dL (12.0-16.0); Immature Granulocytes Abs Auto 0.01 10^3/uL (0.00-0.03); Immature Granulocytes Pct Auto 0.2 % (0.0-0.5); Lymphocytes Absolute Auto 1.8 10^3/uL (1.2-3.8); Mean Corpuscular HGB Conc 34.4 g/dL (29.9-35.2); Mean Corpuscular Hemoglobin 31.8 pg (26.7-34.0); Mean Corpuscular Volume 92.4 fL (81.0-99.0); Platelet Count 215 10^3/uL (150-450); Red Blood Count 4.47 10^6/uL (4.20-5.40); White Blood Count 4.9 10^3/uL (4.0-11.0)
[2025-01-01 08:23] LABS: Alanine Aminotransferase 37 U/L (14-59); Albumin Globulin Ratio 1.1; Albumin Level 4.0 g/dL (3.4-5.0); Alkaline Phosphatase 70 U/L (46-116); Anion Gap 10.7; Aspartate Amino Transferase 29 U/L (15-37); Blood Urea Nitrogen 17.0 mg/dL (7.0-18.0); Calcium 9.9 mg/dL (8.5-10.1); Carbon Dioxide 28.3 mmol/L (21.0-32.0); Chloride 104 mmol/L (98-107); Cholesterol 207 mg/dL (<=200); Estimated GFR (African America >60 (>=60 mL/min/1.73m^2); Estimated GFR (Non-African Ame >60 (>=60 mL/min/1.73m^2); Free T3 2.68 pg/mL (2.18-3.98); Globulin 3.6 g/dL; Glucose 87 mg/dL (74-106); Potassium 4.0 mmol/L (3.5-5.1); Sodium 139 mmol/L (136-145); Thyroid Stimulating Hormone 3.808 uIU/mL (0.358-3.740); Total Protein 7.6 g/dL (6.4-8.2)
[2025-01-01 10:00] LABS: Ferritin 89.0 ng/mL (8.0-252.0)
[2025-01-02 04:07] LABS: Sex Horm Binding Glob, Serum 54.4 nmol/L (17.3-125.0)
[2025-01-04 12:09] LABS: Calcitriol(1,25 di-OH Vit D) 61.9 pg/mL (24.8-81.5)
[2025-01-05 04:07] LABS: Reverse T3, Serum 13.2 ng/dL (9.2-24.1)
== END 2025-01-01 07:19 | disposition home or self-care (01) ==
LOC: LAB 07:19
PROVIDERS: Visit Provider Physician Assistant
DX: Z00.00 Encounter for general adult medical examination without abnormal findings (principal); R79.89 Other specified abnormal findings of blood chemistry; E34.9 Endocrine disorder, unspecified
CPT/HCPCS: 36415; 80053; 82465; 82530; 82627; 82652; 82670; 82679; 82728; 83036; 83525; 84144; 84260; 84270; 84402; 84403; 84432; 84436; 84439; 84443; 84481; 84482; 84681; 85025; 86376; 86800